=== PATIENT | female | born 1990 | race African-American/Black ===

== ENCOUNTER 2016-10-31 19:58 | Emergency (ER) | payer OTHER ==
--- NOTE | 2016-10-31 21:16 | ED ---
Female Urogenital HPI - General Chief complaint: Urogenital Stated complaint: Female Time Seen by Provider: 10/31/16 20:38 Source: patient, RN notes reviewed Mode of arrival: ambulatory Limitations: no limitations - History of Present Illness Initial comments: 26-year-old female presents to the emergency department with a chief complaint of pelvic pain and bleeding. Patient states that she has an IUD in place. Patient states that she's had some pelvic pain and bleeding for the past few days. Patient states that most likely was her period but she states that she felt like she maybe feels something hard so she was concerned. Patient states she called her [employer] and they referred her here to have her IUD evaluated. Patient denies any other symptoms with this. Patient states she is having some pelvic cramping. Patient denies any recent fever, chills, shortness of breath, chest pain, back pain, nausea vomiting, numbness or tingling, dysuria or hematuria, constipation or diarrhea, headaches or visual changes, or any other current symptoms. - Related Data Home Medications Medication Instructions Recorded Confirmed No Known Home Medications [No 04/16/16 10/31/16 Known Home Medications] Allergies Allergy/AdvReac Type Severity Reaction Status Date / Time No Known Allergies Allergy Verified 10/31/16 21:17 Review of Systems ROS Statement: Those systems with pertinent positive or pertinent negative responses have been documented in the HPI. ROS Other: All systems not noted in ROS Statement are negative. Past Medical History Past Medical History: No Reported History History of Any Multi-Drug Resistant Organisms: None Reported Past Surgical History: Section Past Anesthesia/Blood Transfusion Reactions: No Reported Reaction Past Psychological History: No Psychological Hx Reported Smoking Status: Never smoker Past Alcohol Use History: None Reported Past Drug Use History: None Reported - Past Family History Mother Family Medical History: No Reported History General Exam Limitations: no limitations General appearance: alert, in no apparent distress Head exam: Present: atraumatic, normocephalic, normal inspection Neck exam: Present: normal inspection. Absent: tenderness, meningismus, lymphadenopathy Respiratory exam: Present: normal lung sounds bilaterally. Absent: respiratory distress, wheezes, rales, rhonchi, stridor Cardiovascular Exam: Present: regular rate, normal rhythm, normal heart sounds. Absent: systolic murmur, diastolic murmur, rubs, gallop, clicks GI/Abdominal exam: Present: soft, normal bowel sounds. Absent: distended, tenderness, guarding, rebound, rigid Speculum exam: Present: normal speculum exam, vaginal bleeding (Normal), other ( Translocated through cervix) By manual exam: Present: normal by manual exam. Absent: cervical motion tenderness, adnexal tenderness Extremities exam: Present: normal inspection, full ROM, normal capillary refill. Absent: tenderness, pedal edema, joint swelling, calf tenderness Neurological exam: Present: alert, oriented X3 Psychiatric exam: Present: normal affect, normal mood Skin exam: Present: warm, dry, intact, normal color. Absent: rash Course Vital Signs 10/31/16 20:07 Temperature 97.6 F Pulse Rate 74 Respiratory 20 Rate Blood Pressure 115/74 O2 Sat by Pulse 99 Oximetry Medical Decision Making - Medical Decision Making 26-year-old female presents to the emergency department with chief complaint of concern about her IUD. At this time patient's IUD does appear to be appropriate. This time we discussed patient most likely is suffering from menstruation. We discussed taking Motrin Tylenol for pain control. We discussed return parameters and follow-up. Discussed and she will be discharged. Disposition Clinical Impression: Abnormal menstruation Disposition: HOME SELF-CARE Condition: Stable Instructions: Dysmenorrhea (ED) Additional Instructions: Please use medication as discussed. Please follow up with family doctor if symptoms have not improved over the next two days. Please return to the emergency room if your symptoms increase or worsen or for any other concerns. Referrals: None,Stated [Primary Care Provider] - 1-2 days Stephon Quinn MD [STAFF PHYSICIAN] - 1-2 days Time of Disposition: 22:12
--- NOTE | 2016-10-31 22:04 | US ---
EXAMINATION TYPE: US transvaginal DATE OF EXAM: 10/31/2016 9:53 PM COMPARISON: 02/20/2015. CLINICAL HISTORY: Pain. Patient states feeling IUD. Check position. No pain. Bleeding. Irreg mense s TECHNIQUE: Transvaginal (TV) Date of LMP: 05/2016, EXAM MEASUREMENTS: Uterus: 8.9 x 4.9 4.4 cm Endometrial Stripe: 0.6 cm Right Ovary: 2.6 x 2.1 x 2.2 cm Left Ovary: 2.5 x 2.2 x 1.7 cm 1. Uterus: Anteverted wnl 2. Endometrium: wnl, IUD seen 3. Right Ovary: follicles 4. Left Ovary: follicles Spectral, color and waveform doppler imaging shows good arterial and venous flow within the ovaries ; there is no evidence for ovarian torsion. 5. Bilateral Adnexa: wnl 6. Posterior cul-de-sac: no free fluid Intrauterine device is seen centrally within the endometrium spanning the lower and upper uterine seg ments. Few nabothian cysts are seen within the cervix. IMPRESSION: Appropriately placed intrauterine device spanning the lower and upper cervical segment. O therwise unremarkable pelvic ultrasound.
[2016-10-31 22:31] VITALS: BP 112/68; PULSE 70; RESP 18; TEMP 97.5
== END 2016-10-31 22:30 | disposition home or self-care (01) ==
LOC: EC 19:58
DX: N92.6 Irregular menstruation, unspecified (principal); R10.2 Pelvic and perineal pain
CPT/HCPCS: 76830; 93975; 99283

== ENCOUNTER 2016-11-23 01:26 | Emergency (ER) | payer OTHER ==
[2016-11-23 02:46] VITALS: RESP 20
[2016-11-23] MEDS ORDERED: IPRATROPIUM-ALBUTEROL 3 ML NEB INHALATION STA (03:25)
--- NOTE | 2016-11-23 03:27 | ED ---
URI HPI - General Chief Complaint: Upper Respiratory Infection Stated Complaint: URI Time Seen by Provider: 11/23/16 02:51 Source: patient, RN notes reviewed Mode of arrival: ambulatory Limitations: no limitations - History of Present Illness Initial Comments: Patient is a 26-year-old female presents to the emergency room for reevaluation upper respiratory symptoms. Patient states she's had cough and congestion and throat pain for the past 2 days. Patient denies taking any [id number] medications. Patient states she is coughing up green mucus. Patient denies fevers or chills. Patient denies abdominal pain. Patient denies nausea or vomiting. Patient denies ear pain. Patient states she is having constant throat pain that is worse whenever she coughs. Patient denies smoking. Patient denies history of asthma. Patient states she is up-to-date on her immunizations. - Related Data Previous Rx's Medication Instructions Recorded Albuterol Inhaler [Ventolin Hfa 1 - 2 puff INHALATION Q6HR PRN #1 11/23/16 Inhaler] inhaler Azithromycin [Zithromax Z-pack] 250 mg PO DIRECTED #6 tab 11/23/16 Allergies Allergy/AdvReac Type Severity Reaction Status Date / Time No Known Allergies Allergy Verified 11/23/16 01:36 Review of Systems ROS Statement: Those systems with pertinent positive or pertinent negative responses have been documented in the HPI. ROS Other: All systems not noted in ROS Statement are negative. Past Medical History Past Medical History: No Reported History History of Any Multi-Drug Resistant Organisms: None Reported Past Surgical History: Section Past Anesthesia/Blood Transfusion Reactions: No Reported Reaction Past Psychological History: No Psychological Hx Reported Smoking Status: Never smoker Past Alcohol Use History: None Reported Past Drug Use History: None Reported - Past Family History Mother Family Medical History: No Reported History General Exam - General Exam Comments Initial Comments: Sitting in exam room, no acute distress. Limitations: no limitations General appearance: alert, in no apparent distress Head exam: Present: atraumatic, normocephalic, normal inspection Eye exam: Present: normal appearance ENT exam: Present: normal exam, normal oropharynx, mucous membranes moist, TM's normal bilaterally, normal external ear exam Neck exam: Present: normal inspection Respiratory exam: Present: normal lung sounds bilaterally. Absent: respiratory distress Cardiovascular Exam: Present: regular rate, normal rhythm, normal heart sounds Extremities exam: Present: normal inspection Back exam: Present: normal inspection Neurological exam: Present: alert, oriented X3, CN II-XII intact, normal gait Psychiatric exam: Present: normal affect, normal mood Skin exam: Present: warm, dry, intact, normal color. Absent: rash Course Vital Signs 11/23/16 11/23/16 11/23/16 01:33 02:45 03:39 Temperature 97.5 F L Pulse Rate 98 92 Respiratory 18 20 Rate Blood Pressure 140/76 O2 Sat by Pulse 98 Oximetry 11/23/16 03:48 Temperature Pulse Rate 92 Respiratory Rate Blood Pressure O2 Sat by Pulse Oximetry Medical Decision Making - Medical Decision Making patient is a 26-year-old female presents to the emergency room for evaluation of cough and congestion. patient will be treated for bronchitis. Advised patient to follow-up with primary care provider Thursday. Patient states she understands everything that was discussed with her. Return parameters discussed. Case discussed with Dr. Umanzor. - Lab Data Lab Results 11/23/16 11/23/16 Range/Units 03:10 03:10 Influenza Type A RNA Not Detected (Not Detectd) Influenza Type B (PCR) Not Detected (Not Detectd) Group A Strep Rapid Negative (Negative) - Radiology Data Radiology results: report reviewed, image reviewed Disposition Clinical Impression: Bronchitis Disposition: HOME SELF-CARE Condition: Good Instructions: Acute Bronchitis (ED) Additional Instructions: Take antibiotics as directed. Use inhaler as needed. Please follow up with primary care provider on Thursday for reevaluation. If any new symptom arises or symptoms worsen, return to ER as soon as possible. Prescriptions: Albuterol Inhaler [Ventolin Hfa Inhaler] 1 - 2 puff INHALATION Q6HR PRN #1 inhaler PRN Reason: Cough Azithromycin [Zithromax Z-pack] 250 mg PO DIRECTED #6 tab Referrals: None,Stated [Primary Care Provider] - 1-2 days Time of Disposition: 04:22
--- NOTE | 2016-11-23 04:22 | XR ---
EXAM: XR Chest, 2 Views CLINICAL HISTORY: Reason: Pain TECHNIQUE: Frontal and lateral views of the chest. COMPARISON: 04/16/16 FINDINGS: Lungs: Unremarkable. No consolidation. Pleural space: Unremarkable. No pneumothorax. Heart: Unremarkable. No cardiomegaly. Mediastinum: Unremarkable. Bones/joints: Unremarkable. IMPRESSION: No significant change. No new acute intrathoracic abnormality is seen.
[2016-11-23 04:55] VITALS: BP 132/78; PULSE 81; TEMP 97.6
== END 2016-11-23 04:54 | disposition home or self-care (01) ==
LOC: EC 01:26
DX: J40 Bronchitis, not specified as acute or chronic (principal)
CPT/HCPCS: 71020; 87081; 87430; 87502; 94640; 99284

== ENCOUNTER 2017-01-24 16:43 | Emergency (ER) | payer OTHER ==
[2017-01-24 16:49] VITALS: BP 128/75; PULSE 71; RESP 16; TEMP 98.5
--- NOTE | 2017-01-24 17:25 | ED ---
General Adult HPI - General Chief complaint: Vaginal Bleeding Stated complaint: Urogenital Time Seen by Provider: 01/24/17 17:03 Source: patient, RN notes reviewed Mode of arrival: ambulatory Limitations: no limitations - History of Present Illness Initial comments: 26-year-old female presents to the emergency department with a chief complaint of pelvic cramping and vaginal bleeding. Patient states she has an IUD in place. Patient states that she's been having pelvic cramping and some bleeding for the past 2 days. Patient states she's having some vaginal discomfort. Patient is concerned about her IUD. Patient does not believe that she is . Patient states she's had no nausea vomiting fever or chills. Patient states she has regular menstrual cycle so she does not know if this is her menstrual cycle or something different. Patient denies any abdominal pain with this states she is cervical and vaginal pain. Patient states that she hasn 't had any fever or chills with this. Patient states that her BAND SHOVER is Dr. Palma. Patient states she was concerned due to her symptoms so she thought that she. Patient denies any recent fever, chills, shortness of breath, chest pain, back pain, abdominal pain, nausea vomiting, numbness or tingling, dysuria or hematuria, constipation or diarrhea, headaches or visual changes, or any other current symptoms. - Related Data Home Medications Medication Instructions Recorded Confirmed No Known Home Medications [No 01/24/17 01/24/17 Known Home Medications] Allergies Allergy/AdvReac Type Severity Reaction Status Date / Time No Known Allergies Allergy Verified 01/24/17 16:57 Review of Systems ROS Statement: Those systems with pertinent positive or pertinent negative responses have been documented in the HPI. ROS Other: All systems not noted in ROS Statement are negative. Past Medical History Past Medical History: No Reported History History of Any Multi-Drug Resistant Organisms: None Reported Past Surgical History: Section Additional Past Surgical History / Comment(s): IUD placement Past Anesthesia/Blood Transfusion Reactions: No Reported Reaction Past Psychological History: No Psychological Hx Reported Smoking Status: Never smoker Past Alcohol Use History: None Reported Past Drug Use History: None Reported - Past Family History Mother Family Medical History: No Reported History General Exam Limitations: no limitations General appearance: alert, in no apparent distress Eye exam: Present: normal appearance, PERRL, EOMI. Absent: scleral icterus, conjunctival injection, periorbital swelling Neck exam: Present: normal inspection. Absent: tenderness, meningismus, lymphadenopathy Respiratory exam: Present: normal lung sounds bilaterally. Absent: respiratory distress, wheezes, rales, rhonchi, stridor Cardiovascular Exam: Present: regular rate, normal rhythm, normal heart sounds. Absent: systolic murmur, diastolic murmur, rubs, gallop, clicks External exam: Present: normal external exam Speculum exam: Present: normal speculum exam, other (Strengths do appear to be intact) By manual exam: Present: normal by manual exam Neurological exam: Present: alert, oriented X3 Psychiatric exam: Present: normal affect, normal mood Skin exam: Present: warm, dry, intact, normal color. Absent: rash Course Vital Signs 01/24/17 16:45 Temperature 98.5 F Pulse Rate 71 Respiratory 16 Rate Blood Pressure 128/75 O2 Sat by Pulse 100 Oximetry Medical Decision Making - Medical Decision Making 26-year-old female presents for vaginal pain and bleeding. At this time ultrasound is reviewed and negative. is negative urine appears to be negative. At this time we discussed her cramping is most likely due to her maps was discussed. Patient states that she understood. She is negative plan. She will be discharged. - Lab Data Lab Results 01/24/17 01/24/17 Range/Units 17:45 17:45 Urine Color Light Yellow Urine Appearance Clear (Clear) Urine pH 5.5 (5.0-8.0) Ur Specific May 1.012 (1.001-1.035) Urine Protein Negative (Negative) Urine Glucose (UA) Negative (Negative) Urine Ketones Negative (Negative) Urine Blood Moderate H (Negative) Urine Nitrite Negative (Negative) Urine Bilirubin Negative (Negative) Urine Urobilinogen <2.0 (<2.0) mg/dL Ur Leukocyte Esterase Trace H (Negative) Urine RBC <1 (0-5) /hpf Urine WBC 2 (0-5) /hpf Ur Squamous Epith Cells 3 (0-4) /hpf Urine HCG, Qual Not Detected (Not Detectd) - Radiology Data Radiology results: report reviewed, image reviewed Disposition Clinical Impression: Dysfunctional uterine bleeding Disposition: TRANSFER TO PSYCH HOSP/UNIT Condition: Stable Instructions: Dysfunctional Uterine Bleeding (ED) Additional Instructions: Please follow up with family doctor if symptoms have not improved over the next two days. Please return to the emergency room if your symptoms increase or worsen or for any other concerns. Referrals: Nichol Lowe DO [Doctor of Osteopathic Medicine] - 1-2 days Time of Disposition: 18:55
[2017-01-24 18:00] LABS: Appearance,Urine Clear (Clear); Bilirubin,Urine Negative (Negative); Glucose,Urine (UA) Negative (Negative); Ketones,Urine Negative (Negative); Leukocyte Esterase,Urine Trace (Negative); Nitrite,Urine Negative (Negative); PH, Urine 5.5 (5.0-8.0); Particle Count 2144; Protein,Urine Negative (Negative); RBC,Urine <1 /hpf (0-5); Specific Gravity,Urine 1.012 (1.001-1.035); Squamous Epithelial Cell,Urine 3 /hpf (0-4); UA Billing (MACRO vs. MICRO) MICRO; Urobilinogen,Urine <2.0 mg/dL (<2.0); WBC,Urine 2 /hpf (0-5)
--- NOTE | 2017-01-24 18:43 | US ---
EXAMINATION TYPE: US pelvis comp w/tv w/doppler DATE OF EXAM: 01/24/2017 COMPARISON: NONE CLINICAL HISTORY: Pain. TECHNIQUE: Transabdominal & Transvaginal Date of LMP: unknown irreg periods EXAM MEASUREMENTS: Uterus: 9.4 x 4.7 x 6.1 cm Endometrial Stripe: 0.4 cm Right Ovary: 2.9 x 2.5 x 2.3 cm Left Ovary: 3.5 x 2.3 x 2.6 cm 1. Uterus: anteverted; appears wnl 2. Endometrium: wnl, IUD appears wnl endo in the fundal area of the uterus 3. Right Ovary: wnl 4. Left Ovary: wnl Spectral, color and waveform doppler imaging shows good arterial and venous flow within the ovaries ; there is no evidence for ovarian torsion. 5. Bilateral Adnexa: wnl 6. Posterior cul-de-sac: wnl IMPRESSION: IUD appears in good position. No evidence of ovarian torsion. No adnexal mass or free flu id.
== END 2017-01-24 19:30 | disposition home or self-care (01) ==
LOC: EC 16:43
DX: N93.8 Other specified abnormal uterine and vaginal bleeding (principal); Z98.890 Other specified postprocedural states
CPT/HCPCS: 76830; 76856; 81001; 81025; 93975; 93976; 99284

== ENCOUNTER 2017-06-23 02:08 | Emergency (ER) | payer OTHER ==
[2017-06-23] MEDS ORDERED: SODIUM CHLORIDE 0.9% 1,000 ML IV STA (02:24)
--- NOTE | 2017-06-23 02:28 | ED ---
Abdominal Pain HPI - General Chief Complaint: Abdominal Pain Stated Complaint: abd pain Time Seen by Provider: 06/23/17 02:10 Source: patient, EMS, RN notes reviewed Mode of arrival: EMS Limitations: no limitations - History of Present Illness Initial Comments: This is a 27-year-old female who presents to the emergency department with chief complaint of intermittent abdominal pain. Patient arrived via EMS. Patient states that for the past 2 days she has been experiencing lower abdominal pain which alerts her that she has to have a bowel movement. Patient states that while trying to pass stool her abdominal pain increases. She states that she has been straining to have a bowel movement. Denies any blood in the stool. She states that she has also been feeling nauseous. She states that her appetite has been normal and that she's been able to keep down fluids. Denies fever, chills, chest pain, shortness of breath, constipation or diarrhea , dysuria or hematuria, numbness or tingling, headache or vision changes. - Related Data Previous Rx's Medication Instructions Recorded Cyclobenzaprine [Flexeril] 10 mg PO TID #15 tab 06/20/17 Ibuprofen 800 mg PO TID #20 tablet 06/20/17 Docusate Sodium [Dok] 100 mg PO BID PRN #20 capsule 06/23/17 Allergies Allergy/AdvReac Type Severity Reaction Status Date / Time No Known Allergies Allergy Verified 06/20/17 20:50 Review of Systems ROS Statement: Those systems with pertinent positive or pertinent negative responses have been documented in the HPI. ROS Other: All systems not noted in ROS Statement are negative. Past Medical History Past Medical History: No Reported History History of Any Multi-Drug Resistant Organisms: None Reported Past Surgical History: Section Additional Past Surgical History / Comment(s): IUD placement Past Anesthesia/Blood Transfusion Reactions: No Reported Reaction Past Psychological History: Depression, PTSD Smoking Status: Never smoker Past Alcohol Use History: None Reported Past Drug Use History: None Reported - Past Family History Mother Family Medical History: No Reported History General Exam - General Exam Comments Initial Comments: General: Awake and alert, well-developed; in no apparent distress. HEENT: Head atraumatic, normocephalic. Pupils are equal, round and reactive to light. Extraocular movements intact. Oropharynx moist without erythema or exudate. Neck: Supple. Normal ROM. Cardiovascular: Regular rate and rhythm. No murmurs, rubs or gallops. Chest symmetrical. Respiratory: Lungs clear to auscultation bilaterally. No wheezes, rales or rhonchi. Normal respiratory effort with no use of accessory muscles. Abdomen: Soft, non-tender, non-distended. No rigidity, rebound or guarding. Normal bowel sounds in all 4 quadrants. Skin: [place], warm and dry without rashes or lesions. Neurological: Alert and oriented x3. CN II-XII grossly intact. Speech is fluent and answers are appropriate. No focal neuro deficits. Psychiatric: Normal mood and affect. No overt signs of depression or anxiety noted. Limitations: no limitations Course Vital Signs 06/23/17 02:16 Temperature 97.6 F Pulse Rate 59 L Respiratory 18 Rate Blood Pressure 132/56 O2 Sat by Pulse 100 Oximetry Medical Decision Making - Medical Decision Making This is a 27-year-old female who presented via EMS for evaluation of abdominal pain for the past 2 days. Patient states that the abdominal pain occurs in her lower abdomen and is intermittent, increasing when she has a bowel movement. Denies any blood in the stool. CBC, CMP, amylase and lipase are within normal limits. Patient does not have a white count. UA is normal. KUB revealed no acute abnormalities. Patient reports she has been straining to have a bowel movement. Patient will be discharged home with a prescription for stool softeners. Findings and plan were discussed with patient. Return parameters were addressed. Patient is in agreement with plan and voices understanding. All questions were answered. - Radiology Data Radiology results: report reviewed KUB x-ray impression: No acute disease or bowel obstruction. Disposition Clinical Impression: Abdominal pain Disposition: HOME SELF-CARE Condition: Good Instructions: Abdominal Pain (ED) Additional Instructions: Please take medications as prescribed. Please follow up with primary care provider within 1-2 days. Return to emergency department if symptoms should worsen or any concerns arise. Prescriptions: Docusate Sodium [Dok] 100 mg PO BID PRN #20 capsule PRN Reason: Constipation Referrals: None,Stated [Primary Care Provider] - 1-2 days Time of Disposition: 03:29
[2017-06-23 02:50] LABS: Basophils # (A) 0.1 k/uL (0-0.2); Basophils % (A) 1 %; CH 33.2; CHCM 35.5; Eosinophils # (A) 0.1 k/uL (0-0.7); Eosinophils % (A) 1 %; HCT 39.1 % (34.0-46.0); HDW 2.56; HGB 13.2 gm/dL (11.4-16.0); Luc # (Auto) 0.15; Luc % (Auto) 2; Lymphocytes % (A) 34 %; MCH 31.7 pg (25.0-35.0); MCHC 33.8 g/dL (31.0-37.0); MCV 93.7 fL (80.0-100.0); Mean Platelet Volume 7.1; Monocytes # (A) 0.5 k/uL (0-1.0); Monocytes % (A) 6 %; Neutrophils % (A) 56 %; RBC 4.17 m/uL (3.80-5.40); WBC 8.8 k/uL (3.8-10.6); WBC (Perox) 8.69
[2017-06-23 03:04] LABS: ALT 36 U/L (9-52); AST 22 U/L (14-36); Alkaline Phosphatase 59 U/L (38-126); Amylase 80 U/L (30-110); Anion Gap 12 mmol/L; Blood Urea Nitrogen 14 mg/dL (7-17); Calcium 9.1 mg/dL (8.4-10.2); Carbon Dioxide 25 mmol/L (22-30); Chloride 106 mmol/L (98-107); Glucose 96 mg/dL (74-99); Non-African American GFR(MDRD) >60 (>60 ml/min/1.73 sqM); Potassium 3.8 mmol/L (3.5-5.1); Sodium 143 mmol/L (137-145); Total Bilirubin <0.1 mg/dL (0.2-1.3); Total Protein 6.5 g/dL (6.3-8.2)
[2017-06-23 03:16] LABS: Appearance,Urine Clear (Clear); Bilirubin,Urine Negative (Negative); Glucose,Urine (UA) Negative (Negative); Ketones,Urine Negative (Negative); Leukocyte Esterase,Urine Negative (Negative); Nitrite,Urine Negative (Negative); Protein,Urine Negative (Negative); Specific Gravity,Urine 1.013 (1.001-1.035); UA Billing (MACRO vs. MICRO) CHEM; Urobilinogen,Urine <2.0 mg/dL (<2.0)
--- NOTE | 2017-06-23 03:17 | XR ---
EXAM: XR Abdomen, 1 View CLINICAL HISTORY: Reason: abdominal pain TECHNIQUE: Frontal supine view of the abdomen/pelvis. COMPARISON: No relevant prior studies available. FINDINGS: Gastrointestinal tract: Unremarkable with no gross evidence for free intraperitoneal air. No dilation. Bones/joints: Unremarkable. OTHER: IUD in place. IMPRESSION: No acute disease or bowel obstruction.
[2017-06-23 03:42] VITALS: BP 101/66; PULSE 61; RESP 16; TEMP 97.4
== END 2017-06-23 03:41 | disposition home or self-care (01) ==
LOC: EC 02:08
DX: R10.30 Lower abdominal pain, unspecified (principal); R11.0 Nausea
CPT/HCPCS: 36415; 74000; 80053; 81003; 82150; 83690; 85025; 96360; 99284

== ENCOUNTER 2017-12-01 23:16 | Emergency (ER) | payer OTHER ==
[2017-12-01] MEDS ORDERED: IBUPROFEN 600 MG STARTER PACK 4 TAB BTL PO STA (23:52)
--- NOTE | 2017-12-02 00:11 | XR ---
EXAMINATION TYPE: XR lumbar spine 2 or 3V DATE OF EXAM: 12/02/2017 COMPARISON: NONE HISTORY: Back pain TECHNIQUE: 3 views FINDINGS: Lumbar vertebra have normal spacing and alignment. Posterior elements are intact. Sacroilia c joints appear normal. IMPRESSION: Normal lumbar spine exam.
--- NOTE | 2017-12-02 00:12 | XR ---
EXAMINATION TYPE: XR knee limited bilateral DATE OF EXAM: 12/02/2017 COMPARISON: NONE HISTORY: Bilateral knee pain TECHNIQUE: 2 views each knee FINDINGS: I see no fracture nor dislocation. Joint spaces are normal. There is no sign of any joint e ffusion. There are no pathologic calcifications. IMPRESSION: Negative bilateral knee exam.
--- NOTE | 2017-12-02 00:29 | ED ---
General Adult HPI - General Chief complaint: Back Pain/Injury Stated complaint: knee/back pain Time Seen by Provider: 12/01/17 23:34 Source: patient, RN notes reviewed, old records reviewed Mode of arrival: ambulatory Limitations: no limitations - History of Present Illness Initial comments: 27-year-old female presents to emergency department and she complain of bilateral knee pain and back pain. She states that it seems to be worse than ever she is resting her legs start to ache. Denies is a new trauma. She also states she has a lower back pain. That is also chronic. It will radiate down her left leg. She denies any saddle anesthesia. - Related Data Previous Rx's Medication Instructions Recorded Cyclobenzaprine [Flexeril] 10 mg PO TID #15 tab 06/20/17 Ibuprofen 800 mg PO TID #20 tablet 06/20/17 Docusate Sodium [Dok] 100 mg PO BID PRN #20 capsule 06/23/17 Cyclobenzaprine [Flexeril] 10 mg PO TID #15 tab 12/02/17 Ibuprofen [Motrin] 600 mg PO Q8HR PRN #20 tab 12/02/17 Nitrofurantoin Monohyd/M-Cryst 100 mg PO Q12HR #15 cap 12/02/17 [Macrobid] Allergies Allergy/AdvReac Type Severity Reaction Status Date / Time No Known Allergies Allergy Verified 06/20/17 20:50 Review of Systems ROS Statement: Those systems with pertinent positive or pertinent negative responses have been documented in the HPI. ROS Other: All systems not noted in ROS Statement are negative. Past Medical History Past Medical History: No Reported History History of Any Multi-Drug Resistant Organisms: None Reported Past Surgical History: Section Additional Past Surgical History / Comment(s): IUD placement Past Anesthesia/Blood Transfusion Reactions: No Reported Reaction Past Psychological History: Depression, PTSD Smoking Status: Never smoker Past Alcohol Use History: None Reported Past Drug Use History: None Reported - Past Family History Mother Family Medical History: No Reported History General Exam - General Exam Comments Initial Comments: This is a 27 year old female, no acute distress. Limitations: no limitations General appearance: alert, in no apparent distress Head exam: Present: atraumatic, normocephalic, normal inspection Eye exam: Present: normal appearance, PERRL, EOMI. Absent: scleral icterus, conjunctival injection, periorbital swelling ENT exam: Present: normal exam, mucous membranes moist Neck exam: Present: normal inspection. Absent: tenderness, meningismus, lymphadenopathy Respiratory exam: Present: normal lung sounds bilaterally. Absent: respiratory distress, wheezes, rales, rhonchi, stridor Cardiovascular Exam: Present: regular rate, normal rhythm, normal heart sounds. Absent: systolic murmur, diastolic murmur, rubs, gallop, clicks GI/Abdominal exam: Present: soft, normal bowel sounds. Absent: distended, tenderness, guarding, rebound, rigid Extremities exam: Present: normal inspection, full ROM, normal capillary refill. Absent: tenderness, pedal edema, joint swelling, calf tenderness Back exam: Present: normal inspection, tenderness (lumbar spinal tenderness. ) Neurological exam: Present: alert, oriented X3, CN II-XII intact Psychiatric exam: Present: normal affect, normal mood Skin exam: Present: warm, dry, intact, normal color. Absent: rash Course Vital Signs 12/01/17 12/02/17 23:17 01:09 Temperature 98.2 F 100.0 F H Pulse Rate 80 76 Respiratory 18 16 Rate Blood Pressure 145/83 146/71 O2 Sat by Pulse 98 98 Oximetry Medical Decision Making - Medical Decision Making This is a 27 year old female with bilateral knee pain and lower back pain with no injury. She has no rashes. She has full ROM of knees and back. No saddle anesthesia. Xrays of knee and back are normal. On discharge patient noted to have a mild fever. UA completed and evidence of UTI. Will treat patient with macrobid. Culture pending. Discussed appropriate follow up and will place patient on antiinflammatories medication and muscle relaxer for back and knee pain. REturn parameters discussed. - Lab Data Lab Results 12/02/17 12/02/17 Range/Units 00:42 00:42 Urine Color Yellow Urine Appearance Cloudy H (Clear) Urine pH 5.5 (5.0-8.0) Ur Specific [place] 1.015 (1.001-1.035) Urine Protein Negative (Negative) Urine Glucose (UA) Negative (Negative) Urine Ketones Negative (Negative) Urine Blood Trace H (Negative) Urine Nitrite Negative (Negative) Urine Bilirubin Negative (Negative) Urine Urobilinogen <2.0 (<2.0) mg/dL Ur Leukocyte Esterase Moderate H (Negative) Urine WBC 15 H (0-5) /hpf Ur Squamous Epith Cells 4 (0-4) /hpf Urine Bacteria Many H (None) /hpf Urine HCG, Qual Not Detected (Not Detectd) - Radiology Data Radiology results: report reviewed Normal bilateral knee exam. Normal lumbar spine exam. Disposition Clinical Impression: Bilateral knee pain, Strain of lumbar region, UTI (urinary tract infection) Disposition: HOME SELF-CARE Condition: Good Instructions: Acute Low Back Pain (ED), Knee Pain (ED) Additional Instructions: Patient advised to follow-up with primary care provider. Return to the emergency department if any alarming signs or symptoms occur. Use anti- inflammatory medicine heat and ice for pain. Prescriptions: Cyclobenzaprine [Flexeril] 10 mg PO TID #15 tab Ibuprofen [Motrin] 600 mg PO Q8HR PRN #20 tab PRN Reason: Pain Nitrofurantoin Monohyd/M-Cryst [Macrobid] 100 mg PO Q12HR #15 cap Is patient prescribed a controlled substance at d/c from ED?: No When asked, does pt state using other controlled substances?: No If prescribed controlled substance>3 days was MAPS reviewed?: No If opioid is for acute pain is fill amount 7 days or less?: No If Rx opioid, was Start Talking consent form obtained?: No Referrals: None,Stated [Primary Care Provider] - 1-2 days Kelly Moralez MD [STAFF PHYSICIAN] - 1-2 days Time of Disposition: 00:27
[2017-12-02] MEDS ORDERED: ACETAMINOPHEN TAB 500 MG TAB PO STA (00:42)
[2017-12-02 00:58] LABS: Appearance,Urine Cloudy (Clear); Bacteria,Urine Many /hpf; Bilirubin,Urine Negative (Negative); Blood,Urine Trace (Negative); Color,Urine Yellow; Glucose,Urine (UA) Negative (Negative); Ketones,Urine Negative (Negative); Leukocyte Esterase,Urine Moderate (Negative); Nitrite,Urine Negative (Negative); PH, Urine 5.5 (5.0-8.0); Protein,Urine Negative (Negative); Specific Gravity,Urine 1.015 (1.001-1.035); Squamous Epithelial Cell,Urine 4 /hpf (0-4); Urobilinogen,Urine <2.0 mg/dL (<2.0); WBC,Urine 15 /hpf (0-5)
[2017-12-02 01:11] VITALS: BP 146/71; PULSE 76; RESP 16; TEMP 100
== END 2017-12-02 01:11 | disposition home or self-care (01) ==
LOC: EC 23:16
DX: S39.012A Strain of muscle, fascia and tendon of lower back, initial encounter (principal); N39.0 Urinary tract infection, site not specified; M25.562 Pain in left knee; M25.561 Pain in right knee; X58.XXXA Exposure to other specified factors, initial encounter
CPT/HCPCS: 72100; 81001; 81025; 87086; 99284

== ENCOUNTER 2018-11-07 21:06 | Emergency (ER) | payer OTHER ==
[2018-11-07 21:17] VITALS: RESP 18; TEMP 98.2
--- NOTE | 2018-11-07 22:54 | ED ---
General Adult HPI - General Source: patient, RN notes reviewed Mode of arrival: ambulatory Limitations: no limitations <Toro Kendrick P - Last Filed: 11/07/18 23:02> <Annamarie Norman P - Last Filed: 11/07/18 23:13> - General Chief complaint: Anxiety Stated complaint: Anxiety Attack Time Seen by Provider: 11/07/18 21:24 - History of Present Illness Initial comments: 28-year-old female without any significant past medical history of anxiety, depression, PTSD presents to the emergency department for a chief clean of anxiety. Patient states that today she went to the [employer] with her boyfriend. States she was walking home and he started to be on his phone NSAIDs secondary her. Patient states she became upset and started yelling at him in because result of an anxiety attack. Patient states she felt her heart was beating very quickly. States that this has since resolved however she wanted to be evaluated because she feels like her anxiety is getting worse. States she feels very angry. She denies wanting to hurt anyone. Denies homicidal thoughts. Patient denies any thoughts of harming herself or suicidal thoughts. States she would never do this. She has children that rely on her.Patient has no other complaints at this time including shortness of breath, chest pain, abdominal pain, nausea or vomiting, headache, or visual changes. (Toro Kendrick) - Related Data Home Medications Medication Instructions Recorded Confirmed No Known Home Medications 11/07/18 11/07/18 Allergies Allergy/AdvReac Type Severity Reaction Status Date / Time No Known Allergies Allergy Verified 11/07/18 22:09 Review of Systems ROS Other: All systems not noted in ROS Statement are negative. <Toro Kendrick P - Last Filed: 11/07/18 23:02> ROS Other: All systems not noted in ROS Statement are negative. <Annamarie Norman P - Last Filed: 11/07/18 23:13> ROS Statement: Those systems with pertinent positive or pertinent negative responses have been documented in the HPI. Past Medical History Past Medical History: No Reported History History of Any Multi-Drug Resistant Organisms: None Reported Past Surgical History: Section Additional Past Surgical History / Comment(s): IUD placement Past Anesthesia/Blood Transfusion Reactions: No Reported Reaction Past Psychological History: Anxiety, Depression, PTSD Smoking Status: Never smoker Past Alcohol Use History: None Reported Past Drug Use History: Marijuana - Past Family History Mother Family Medical History: No Reported History <Toro Kendrick - Last Filed: 11/07/18 23:02> General Exam Limitations: no limitations General appearance: alert, in no apparent distress Head exam: Present: atraumatic, normocephalic, normal inspection Eye exam: Present: normal appearance, PERRL, EOMI. Absent: scleral icterus, conjunctival injection, periorbital swelling ENT exam: Present: normal exam, mucous membranes moist Neck exam: Present: normal inspection, full ROM. Absent: tenderness, meningismus, lymphadenopathy Respiratory exam: Present: normal lung sounds bilaterally. Absent: respiratory distress, wheezes, rales, rhonchi, stridor Cardiovascular Exam: Present: regular rate, normal rhythm, normal heart sounds. Absent: systolic murmur, diastolic murmur, rubs, gallop, clicks Neurological exam: Present: alert, oriented X3, CN II-XII intact Psychiatric exam: Present: agitated, anxious. Absent: homicidal ideation, suicidal ideation <Toro Kendrick P - Last Filed: 11/07/18 23:02> Course Vital Signs 11/07/18 21:12 Temperature 98.2 F Pulse Rate 77 Respiratory 18 Rate Blood Pressure 146/83 O2 Sat by Pulse 99 Oximetry Medical Decision Making <Toro Kendrick P - Last Filed: 11/07/18 23:02> <Annamarie Norman P - Last Filed: 11/07/18 23:13> - Medical Decision Making 28-year-old female presents to the emergency department for a chief complaint of anxiety after getting in a verbal altercation with her boyfriend. Patient states she is getting more angry lately and is concerned about this. However she is denying thoughts of harming anyone or harming herself. Denies suicidal thoughts or homicidal thoughts. Patient was evaluated by EPS he did offer admission but do not feel it is absolutely necessary for patient to be admitted. Patient would prefer to follow up outpatient however does agree to return if her symptoms are worsening for admission at that time. I did reevaluate and patient was again denying any suicidal or homicidal thoughts. Comfortable with going home and outpatient referrals. (Toro Kendrick) I was available for consultation in the emergency department. The history and physical exam were done by the midlevel provider. I was consulted for this patient's care. I reviewed the case with the midlevel provider and based on their presentation of the patient, I agree with the assessment, medical decision making and plan of care as documented. Chart was dictated using [employer] dictation software. Attempts were made to correct any dictation errors however some typographical errors may persist. (Annamarie Norman) Disposition Is patient prescribed a controlled substance at d/c from ED?: No Time of Disposition: 22:51 <Toro Kendrick P - Last Filed: 11/07/18 23:02> <Annamarie Norman - Last Filed: 11/07/18 23:13> Clinical Impression: Situational anxiety, Situational disturbance, Acute anxiety Disposition: HOME SELF-CARE Instructions (If sedation given, give patient instructions): Generalized Anxiety Disorder (ED) Additional Instructions: Please follow up with primary care as well as resources given to you for mental health. If symptoms are worsening and return here immediately to the emergency department. Referrals: Kelly Moralez MD [STAFF PHYSICIAN] - 1-2 days
[2018-11-07 23:18] VITALS: BP 125/84; PULSE 60
== END 2018-11-07 23:05 | disposition home or self-care (01) ==
LOC: EC 21:06
DX: F41.9 Anxiety disorder, unspecified (principal); F43.0 Acute stress reaction
CPT/HCPCS: 99283

== ENCOUNTER 2018-11-08 19:49 | Emergency (ER) | payer OTHER ==
[2018-11-08 20:23] VITALS: RESP 18
--- NOTE | 2018-11-08 23:17 | ED ---
Psych HPI - General Chief Complaint: Recheck/Abnormal Lab/Rx Stated Complaint: Mental Health Time Seen by Provider: 11/08/18 21:19 Source: patient Mode of arrival: ambulatory - History of Present Illness Initial Comments: This patient is a 28-year-old woman who presents with the complaint that she feels like she is having worsening problems with anger. The patient states that this is been something that getting worse over the past couple of years since her daughter . She is concerned she may be developing PTSD. The patient states she has been having arguments with her boyfriend. She feels she is very quick to anger. She is currently not having treatment for this. She denies any suicidal or homicidal ideation. No hallucinations. MD Complaint: other (Anger management) -: week(s) Associated Psychiatric Symptoms: none History of same: Yes Quality: getting worse Improves With: none Worsens With: none Associated Symptoms: denies other symptoms - Related Data Home Medications Medication Instructions Recorded Confirmed No Known Home Medications 11/07/18 11/08/18 Allergies Allergy/AdvReac Type Severity Reaction Status Date / Time No Known Allergies Allergy Verified 11/08/18 21:39 Review of Systems ROS Statement: Those systems with pertinent positive or pertinent negative responses have been documented in the HPI. ROS Other: All systems not noted in ROS Statement are negative. Constitutional: Denies: fever, chills Respiratory: Denies: cough, dyspnea Cardiovascular: Denies: chest pain, palpitations Gastrointestinal: Denies: abdominal pain, vomiting, diarrhea Skin: Denies: rash Neurological: Denies: headache, weakness, numbness Psychiatric: Reports: homicidal thoughts. Denies: suicidal thoughts Past Medical History Past Medical History: No Reported History History of Any Multi-Drug Resistant Organisms: None Reported Past Surgical History: Section Additional Past Surgical History / Comment(s): IUD placement, Past Anesthesia/Blood Transfusion Reactions: No Reported Reaction Past Psychological History: Anxiety, Depression, PTSD Smoking Status: Never smoker Past Alcohol Use History: None Reported Past Drug Use History: Marijuana - Past Family History Mother Family Medical History: No Reported History General Exam Limitations: no limitations General appearance: alert, in no apparent distress Head exam: Present: atraumatic, normocephalic Neck exam: Present: normal inspection Respiratory exam: Present: normal lung sounds bilaterally. Absent: respiratory distress, wheezes, rales, rhonchi, stridor Cardiovascular Exam: Present: regular rate, normal rhythm, normal heart sounds GI/Abdominal exam: Present: soft. Absent: tenderness Neurological exam: Present: alert, normal gait Psychiatric exam: Present: normal affect, normal mood, homicidal ideation. Absent: agitated, suicidal ideation Skin exam: Present: warm, dry, intact, normal color. Absent: rash Course Vital Signs 11/08/18 11/08/18 20:16 23:54 Temperature 98.2 F 98.1 F Pulse Rate 64 57 L Respiratory 18 18 Rate Blood Pressure 121/67 132/94 O2 Sat by Pulse 100 100 Oximetry Medical Decision Making - Medical Decision Making Patient is evaluated by the behavioral health team. She does not currently have admission criteria, but will benefit with outpatient care. Patient given the [facility] follow-up information. Return parameters discussed Disposition Clinical Impression: Outbursts of anger Disposition: HOME SELF-CARE Condition: Good Instructions (If sedation given, give patient instructions): Mood Disorders (ED) Is patient prescribed a controlled substance at d/c from ED?: No Referrals: None,Stated [Primary Care Provider] - 1-2 days
[2018-11-08 23:55] VITALS: BP 132/94; PULSE 57; TEMP 98.1
== END 2018-11-08 23:54 | disposition home or self-care (01) ==
LOC: EC 19:49
DX: R45.4 Irritability and anger (principal)
CPT/HCPCS: 82075; 99284

== ENCOUNTER 2018-11-22 00:37 | Emergency (ER) | payer OTHER ==
[2018-11-22 00:42] VITALS: BP 122/80; PULSE 61; RESP 16; TEMP 98.3
--- NOTE | 2018-11-22 01:22 | ED ---
Female Urogenital HPI - General Source: patient Mode of arrival: ambulatory Limitations: no limitations - History of Present Illness Last Menstrual Period: 11/07/18 <Marbella Nugent - Last Filed: 11/22/18 04:20> <Annamarie Norman - Last Filed: 11/23/18 22:32> - General Chief complaint: Urogenital Stated complaint: Female Time Seen by Provider: 11/22/18 00:44 - History of Present Illness Initial comments: 28-year-old female patient presents to the emergency department today for evaluation of vaginal discomfort and possible displacement of her IUD. Patient states that she just after having sexual intercourse she was washing in the shower when she thought she saw her IUD fell out. Patient states she is having some mild discomfort to the vagina so she presented here for further evaluation. Patient states she did have some spotting with this as well. She denies any abnormal vaginal bleeding or discharge leading up to this. Denies any fever or chills. Denies any abdominal or back pain. Denies any hematuria, dysuria, urinary urgency, urinary frequency. Patient denies any recent rash, shortness breath, chest pain, nausea, vomiting, diarrhea, constipation, numbness, tingling, dizziness, weakness, headache, visual changes, or any other complaints. (Marbella Nugent) - Related Data Home Medications Medication Instructions Recorded Confirmed No Known Home Medications 11/07/18 11/08/18 Allergies Allergy/AdvReac Type Severity Reaction Status Date / Time No Known Allergies Allergy Verified 11/22/18 00:42 Review of Systems ROS Other: All systems not noted in ROS Statement are negative. <Marbella Nugent - Last Filed: 11/22/18 04:20> ROS Other: All systems not noted in ROS Statement are negative. <Annamarie Norman - Last Filed: 11/23/18 22:32> ROS Statement: Those systems with pertinent positive or pertinent negative responses have been documented in the HPI. Past Medical History Past Medical History: No Reported History History of Any Multi-Drug Resistant Organisms: None Reported Past Surgical History: Section Additional Past Surgical History / Comment(s): IUD placement, Past Anesthesia/Blood Transfusion Reactions: No Reported Reaction Past Psychological History: Anxiety, Depression, PTSD Smoking Status: Never smoker Past Alcohol Use History: None Reported Past Drug Use History: Marijuana - Past Family History Mother Family Medical History: No Reported History <Marbella Nugent M - Last Filed: 11/22/18 04:20> General Exam Limitations: no limitations General appearance: alert, in no apparent distress, other (Physical well- developed, well-nourished adult female patient in no acute distress. Vital signs upon presentation are temperature 98.3F, pulse 61, respirations 16, blood pressure 122/80, pulse ox 98% on room air.) Eye exam: Present: normal appearance, PERRL, EOMI. Absent: scleral icterus, conjunctival injection, periorbital swelling ENT exam: Present: normal exam, normal oropharynx, mucous membranes moist Respiratory exam: Present: normal lung sounds bilaterally. Absent: respiratory distress, wheezes, rales, rhonchi, stridor Cardiovascular Exam: Present: regular rate, normal rhythm, normal heart sounds. Absent: systolic murmur, diastolic murmur, rubs, gallop, clicks GI/Abdominal exam: Present: soft, normal bowel sounds. Absent: distended, tenderness, guarding, rebound, rigid External exam: Present: normal external exam Speculum exam: Present: normal speculum exam, vaginal bleeding (Very mild), other (IUD strings noted from the cervical os) By manual exam: Present: normal by manual exam. Absent: cervical motion tenderness, adnexal tenderness Neurological exam: Present: alert, oriented X3, CN II-XII intact Psychiatric exam: Present: normal affect, normal mood Skin exam: Present: warm, dry, intact, normal color. Absent: rash <Marbella Nugent M - Last Filed: 11/22/18 04:20> Course Vital Signs 11/22/18 00:39 Temperature 98.3 F Pulse Rate 61 Respiratory 16 Rate Blood Pressure 122/80 O2 Sat by Pulse 98 Oximetry Medical Decision Making <Marbella Nugent - Last Filed: 11/22/18 04:20> <Annamarie Norman - Last Filed: 11/23/18 22:32> - Medical Decision Making 28-year-old female patient presents to the emergency department today for evaluation of possible displacement of her IUD. Physical examination did reveal soft nontender abdomen. Pelvic exam did show IUD strings protruding from cervical os. There is some mild vaginal bleeding. Bimanual exam is unremarkable. I did discuss findings with the patient. States that she has felt a difference and the string lengthening is concerned for displacement. She'll be given a prescription for outpatient ultrasound to check placement of the IUD. She is instructed to follow-up with Dr. Mccray her flour tester for recheck as soon as possible. Return parameters discussed in detail. She verbalizes understanding and agrees with this plan. (Marbella Nugent) I was available for consultation in the emergency department. The history and physical exam were done by the midlevel provider. I was consulted for this patient's care. I reviewed the case with the midlevel provider and based on their presentation of the patient, I agree with the assessment, medical decision making and plan of care as documented. Chart was dictated using [employer] dictation software. Attempts were made to correct any dictation errors however some typographical errors may persist. (Annamarie Norman) Disposition Is patient prescribed a controlled substance at d/c from ED?: No Time of Disposition: 01:22 <Marbella Nugent - Last Filed: 11/22/18 04:20> <Annamarie Norman - Last Filed: 11/23/18 22:32> Clinical Impression: Vaginal discomfort Disposition: HOME SELF-CARE Condition: Good Instructions (If sedation given, give patient instructions): Pelvic Pain in Women (ED) Additional Instructions: Follow-up outpatient for ultrasound. Follow-up with your flour tester for recheck as soon as possible. Return to the emergency department immediately for any new, worsening, or concerning symptoms. Referrals: None,Stated [Primary Care Provider] - 1-2 days
== END 2018-11-22 01:32 | disposition home or self-care (01) ==
LOC: EC 00:37
DX: N89.9 Noninflammatory disorder of vagina, unspecified (principal); N93.9 Abnormal uterine and vaginal bleeding, unspecified; Z97.5 Presence of (intrauterine) contraceptive device
CPT/HCPCS: 99283

== ENCOUNTER 2019-05-29 16:44 | Emergency (ER) | payer OTHER ==
[2019-05-29 16:57] VITALS: RESP 18; TEMP 98.5
[2019-05-29] MEDS ORDERED: SODIUM CHLORIDE 0.9% 500 ML 500 ML IV STA (17:05)
[2019-05-29 17:35] LABS: Basophils % (A) 1 %; Eosinophils # (A) 0.2 k/uL (0-0.7); Eosinophils % (A) 3 %; HCT 36.5 % (34.0-46.0); HGB 12.6 gm/dL (11.4-16.0); Lymphocytes # (A) 2.4 k/uL (1.0-4.8); Lymphocytes % (A) 30 %; MCH 32.6 pg (25.0-35.0); MCHC 34.6 g/dL (31.0-37.0); MCV 94.4 fL (80.0-100.0); Mean Platelet Volume 6.1; Monocytes # (A) 0.5 k/uL (0-1.0); Monocytes % (A) 6 %; Neutrophils # (A) 4.9 k/uL (1.3-7.7); Neutrophils % (A) 60 %; Platelet Count 271 k/uL (150-450); RBC 3.86 m/uL (3.80-5.40); RDW 12.8 % (11.5-15.5); WBC 8.2 k/uL (3.8-10.6)
[2019-05-29 17:45] LABS: ALT 22 U/L (9-52); AST 22 U/L (14-36); African American GFR (CKD) >90 (>60 ml/min/1.73 sqM); Albumin 4.2 g/dL (3.5-5.0); Alkaline Phosphatase 57 U/L (38-126); Anion Gap 8 mmol/L; Blood Urea Nitrogen 10 mg/dL (7-17); Calcium 9.6 mg/dL (8.4-10.2); Carbon Dioxide 28 mmol/L (22-30); Chloride 106 mmol/L (98-107); Glucose 106 mg/dL (74-99); Non-African American GFR(CKD) >90 (>60 ml/min/1.73 sqM); Potassium 3.5 mmol/L (3.5-5.1); Sodium 142 mmol/L (137-145); Total Bilirubin 0.2 mg/dL (0.2-1.3); Total Protein 7.7 g/dL (6.3-8.2)
[2019-05-29 17:52] LABS: Appearance,Urine Cloudy (Clear); Bacteria,Urine Many /hpf; Bilirubin,Urine Negative (Negative); Blood,Urine Negative (Negative); Color,Urine Yellow; Glucose,Urine (UA) Negative (Negative); Ketones,Urine Negative (Negative); Leukocyte Esterase,Urine Small (Negative); Mucus,Urine Rare /hpf; Nitrite,Urine Positive (Negative); PH, Urine 5.5 (5.0-8.0); Protein,Urine Negative (Negative); RBC,Urine 2 /hpf (0-5); Specific Gravity,Urine 1.014 (1.001-1.035); Squamous Epithelial Cell,Urine 10 /hpf (0-4); Urobilinogen,Urine <2.0 mg/dL (<2.0); WBC,Urine 5 /hpf (0-5)
[2019-05-29 17:52] LABS: INR 0.9 (<1.2); Partial Thromboplastin Time 26.7 sec (22.0-30.0); Prothrombin Time 10.2 sec (9.0-12.0)
--- NOTE | 2019-05-29 18:09 | XR ---
EXAMINATION TYPE: XR chest 2V DATE OF EXAM: 05/29/2019 COMPARISON: Prior chest x-ray 11/23/2016 HISTORY: Chest pain TECHNIQUE: Frontal and lateral views of the chest are obtained. FINDINGS: There is no focal air space opacity, pleural effusion, or pneumothorax seen. The cardiac silhouette size is enlarged. The osseous structures are intact. IMPRESSION: Cardiomegaly.
[2019-05-29] MEDS ORDERED: CEPHALEXIN 500MG STARTER PACK 4 CAP BTL PO STA (18:26)
[2019-05-29] MEDS ORDERED: CEPHALEXIN 500 MG CAP PO STA (18:26)
--- NOTE | 2019-05-29 18:27 | ED ---
General Adult HPI - General Chief complaint: Chest Pain Stated complaint: heart hurts Time Seen by Provider: 05/29/19 16:58 Source: patient, RN notes reviewed, old records reviewed Mode of arrival: ambulatory Limitations: no limitations - History of Present Illness Initial comments: 29-year-old female patient presents to ED complaining of chest pain. Patient reports that the pain is substernal stabbing in nature. Has been ongoing for 3 days. Patient reports that she has an IUD. Therefore she cannot be . Denies any shortness of breath. Denies any pain in her legs. Denies any other complaints. Denies any associated symptoms including diaphoresis, nausea vomiting. Systemic: Pt denies fatigue, fever/chills, rash. Pt denies weakness, night sweats, weight loss. Neuro: Pt denies headache, visual disturbances, syncope or pre-syncope. HEENT: Pt denies ocular discharge or irritation, otalgia, rhinorrhea, pharyngitis or notable lymphadenopathy. Cardiopulmonary: Pt denies SOB, heart palpitations, dyspnea on exertion. Abdominal/GI: Pt denies abdominal pain, n/v/d. : Pt denies dysuria, burning w/ urination, frequency/urgency. Denies new onset urinary or bowel incontinence. MSK: Pt denies myalgia, loss of strength or function in extremities. Neuro: Pt denies new onset weakness, paresthesias. - Related Data Previous Rx's Medication Instructions Recorded Cephalexin [Keflex] 500 mg PO Q12HR 7 Days #14 cap 05/29/19 Allergies Allergy/AdvReac Type Severity Reaction Status Date / Time No Known Allergies Allergy Verified 05/29/19 16:57 Review of Systems ROS Statement: Those systems with pertinent positive or pertinent negative responses have been documented in the HPI. ROS Other: All systems not noted in ROS Statement are negative. Past Medical History Past Medical History: No Reported History History of Any Multi-Drug Resistant Organisms: None Reported Past Surgical History: Section Additional Past Surgical History / Comment(s): IUD placement, Past Anesthesia/Blood Transfusion Reactions: No Reported Reaction Past Psychological History: Anxiety, Depression, PTSD Smoking Status: Never smoker Past Alcohol Use History: None Reported Past Drug Use History: Marijuana - Past Family History Mother Family Medical History: No Reported History General Exam - General Exam Comments Initial Comments: Constitutional: NAD, AOX3, Pt has pleasant affect. HEENT: NC/AT, trachea midline, neck supple, no lymphadenopathy. Posterior pharynx non erythematous, without exudates. External ears appear normal, without discharge. Mucous membranes moist. Eyes PERRLA, EOM intact. There is no scleral icterus. No pallor noted. Cardiopulmonary: RRR, no murmurs, rubs or gallops, no JVD noted. Lungs CTAB in anterior and posterior figueroa. No peripheral edema. Abdominal exam: Abdomen soft and non-distended. Abdomen non-tender to palpation in all 4 quadrants. Bowel sounds active in LLQ. No hepatosplenomegaly. No ecchymosis Neuro: CN II-XII grossly intact. No nuchal rigidity. No raccon eyes, no bustillo sign, no hemotympanum. No cervical spinal tenderness. MSK: No posterior calf tenderness bilaterally, homans sign negative bilaterally. Posterior tibialis and radial pulse +2 bilaterally. Sensation intact in upper and lower extremities. Full active ROM in upper and lower extremities, 5/5 stregnth. Limitations: no limitations Course Vital Signs 05/29/19 05/29/19 16:54 17:43 Temperature 98.5 F Pulse Rate 58 L 54 L Respiratory 18 18 Rate Blood Pressure 110/60 106/72 O2 Sat by Pulse 100 100 Oximetry Medical Decision Making - Medical Decision Making 29-year-old female patient presents to the chief complaint of chest pain. Has been ongoing for 3 days. Physical exam didn't display acute pathology. EKG nonischemic. Laboratory investigations are non-impressive. Troponin negative. UA displayed mild urinary tract infection. We'll treat with Keflex. As x-ray display cardiomegaly. Patient was discharged with outpatient primary care follow-up. Pain appears to be noncardiac in nature. Case discussed with Dr. Castillo. - Lab Data Result diagrams: 05/29/19 17:23 05/29/19 17:23 Lab Results 05/29/19 05/29/19 05/29/19 Range/Units 17:23 17:23 17:23 WBC 8.2 (3.8-10.6) k/uL RBC 3.86 (3.80-5.40) m/uL Hgb 12.6 (11.4-16.0) gm/dL Hct 36.5 (34.0-46.0) % MCV 94.4 (80.0-100.0) fL MCH 32.6 (25.0-35.0) pg MCHC 34.6 (31.0-37.0) g/dL RDW 12.8 (11.5-15.5) % Plt Count 271 (150-450) k/uL Neutrophils % 60 % Lymphocytes % 30 % Monocytes % 6 % Eosinophils % 3 % Basophils % 1 % Neutrophils # 4.9 (1.3-7.7) k/uL Lymphocytes # 2.4 (1.0-4.8) k/uL Monocytes # 0.5 (0-1.0) k/uL Eosinophils # 0.2 (0-0.7) k/uL Basophils # 0.0 (0-0.2) k/uL PT 10.2 (9.0-12.0) sec INR 0.9 (<1.2) APTT 26.7 (22.0-30.0) sec Sodium 142 (137-145) mmol/L Potassium 3.5 (3.5-5.1) mmol/L Chloride 106 (98-107) mmol/L Carbon Dioxide 28 (22-30) mmol/L Anion Gap 8 mmol/L BUN 10 (7-17) mg/dL Creatinine 0.76 (0.52-1.04) mg/dL Est GFR (CKD-EPI)AfAm >90 (>60 ml/min/1.73 sqM) Est GFR (CKD-EPI)NonAf >90 (>60 ml/min/1.73 sqM) Glucose 106 H (74-99) mg/dL Calcium 9.6 (8.4-10.2) mg/dL Total Bilirubin 0.2 (0.2-1.3) mg/dL AST 22 (14-36) U/L ALT 22 (9-52) U/L Alkaline Phosphatase 57 (38-126) U/L Troponin I (0.000-0.034) ng/mL Total Protein 7.7 (6.3-8.2) g/dL Albumin 4.2 (3.5-5.0) g/dL Urine Color Urine Appearance (Clear) Urine pH (5.0-8.0) Ur Specific [place] (1.001-1.035) Urine Protein (Negative) Urine Glucose (UA) (Negative) Urine Ketones (Negative) Urine Blood (Negative) Urine Nitrite (Negative) Urine Bilirubin (Negative) Urine Urobilinogen (<2.0) mg/dL Ur Leukocyte Esterase (Negative) Urine RBC (0-5) /hpf Urine WBC (0-5) /hpf Ur Squamous Epith Cells (0-4) /hpf Urine Bacteria (None) /hpf Urine Mucus (None) /hpf Urine HCG, Qual (Not Detectd) 05/29/19 05/29/19 05/29/19 Range/Units 17:23 17:41 17:43 WBC (3.8-10.6) k/uL RBC (3.80-5.40) m/uL Hgb (11.4-16.0) gm/dL Hct (34.0-46.0) % MCV (80.0-100.0) fL MCH (25.0-35.0) pg MCHC (31.0-37.0) g/dL RDW (11.5-15.5) % Plt Count (150-450) k/uL Neutrophils % % Lymphocytes % % Monocytes % % Eosinophils % % Basophils % % Neutrophils # (1.3-7.7) k/uL Lymphocytes # (1.0-4.8) k/uL Monocytes # (0-1.0) k/uL Eosinophils # (0-0.7) k/uL Basophils # (0-0.2) k/uL PT (9.0-12.0) sec INR (<1.2) APTT (22.0-30.0) sec Sodium (137-145) mmol/L Potassium (3.5-5.1) mmol/L Chloride (98-107) mmol/L Carbon Dioxide (22-30) mmol/L Anion Gap mmol/L BUN (7-17) mg/dL Creatinine (0.52-1.04) mg/dL Est GFR (CKD-EPI)AfAm (>60 ml/min/1.73 sqM) Est GFR (CKD-EPI)NonAf (>60 ml/min/1.73 sqM) Glucose (74-99) mg/dL Calcium (8.4-10.2) mg/dL Total Bilirubin (0.2-1.3) mg/dL AST (14-36) U/L ALT (9-52) U/L Alkaline Phosphatase (38-126) U/L Troponin I <0.012 (0.000-0.034) ng/mL Total Protein (6.3-8.2) g/dL Albumin (3.5-5.0) g/dL Urine Color Yellow Urine Appearance Cloudy H (Clear) Urine pH 5.5 (5.0-8.0) Ur Specific [place] 1.014 (1.001-1.035) Urine Protein Negative (Negative) Urine Glucose (UA) Negative (Negative) Urine Ketones Negative (Negative) Urine Blood Negative (Negative) Urine Nitrite Positive H (Negative) Urine Bilirubin Negative (Negative) Urine Urobilinogen <2.0 (<2.0) mg/dL Ur Leukocyte Esterase Small H (Negative) Urine RBC 2 (0-5) /hpf Urine WBC 5 (0-5) /hpf Ur Squamous Epith Cells 10 H (0-4) /hpf Urine Bacteria Many H (None) /hpf Urine Mucus Rare H (None) /hpf Urine HCG, Qual Not Detected (Not Detectd) - EKG Data -: EKG Interpreted by Me (and Dr. Castillo) EKG Comments: Ventricular 56,. O2 14, QRS 90, QT/QTc 442/426. Sinus bradycardia with sensory arrhythmia with first-degree AV block. Nonspecific ST and T wave abnormality. Abnormal EKG. No concern for acute ischemia at this time. Disposition Clinical Impression: Atypical chest pain, UTI (urinary tract infection) Disposition: HOME SELF-CARE Condition: Stable Instructions (If sedation given, give patient instructions): Chest Pain (ED), Urinary Tract Infection in Women (ED) Additional Instructions: Take Medications as directed. Follow-up with primary care provider tomorrow. Return to ER if condition worsens in any way. Prescriptions: Cephalexin [Keflex] 500 mg PO Q12HR 7 Days #14 cap Is patient prescribed a controlled substance at d/c from ED?: No Referrals: None,Stated [Primary Care Provider] - 1-2 days [facility] [NON-STAFF] - 1-2 days
[2019-05-29 18:40] VITALS: BP 98/86; PULSE 67
== END 2019-05-29 18:41 | disposition home or self-care (01) ==
LOC: EC 16:44
DX: N39.0 Urinary tract infection, site not specified (principal); R07.89 Other chest pain; I51.7 Cardiomegaly
CPT/HCPCS: 36415; 71046; 80053; 81001; 81025; 84484; 85025; 85610; 85730; 93005; 96360; 99285

== ENCOUNTER 2019-06-29 20:59 | Emergency (ER) | payer OTHER ==
[2019-06-29 21:20] VITALS: BP 153/85; PULSE 94; RESP 20; TEMP 98.7
--- NOTE | 2019-06-29 21:45 | ED ---
URI HPI - General Chief Complaint: Upper Respiratory Infection Stated Complaint: JOSSY Time Seen by Provider: 06/29/19 21:26 Source: patient, family Mode of arrival: ambulatory Limitations: no limitations - History of Present Illness Initial Comments: Radha previously healthy 29-year-old female who presents the emergency department today for evaluation of cough. Patient reports that she recently moved into a new home that she doesn't believe is been occupied for a number of years, she states that it's very flo and she's been having a lot of runny nose and nonproductive cough. She's not taking anything for this. Patient states that this evening she had a coughing spell which prompted her to the ER for evaluation. Coughing spell resolved prior to arrival she is now asymptomatic. Patient denies any shortness of breath palpitations or chest pain. - Related Data Previous Rx's Medication Instructions Recorded Cephalexin [Keflex] 500 mg PO Q12HR 7 Days #14 cap 05/29/19 Fluticasone Nasal [place] [Flonase 1 spray EA NOSTRIL DAILY #1 bottle 06/29/19 Nasal [place]] Allergies Allergy/AdvReac Type Severity Reaction Status Date / Time No Known Allergies Allergy Verified 06/29/19 21:20 Review of Systems ROS Statement: Those systems with pertinent positive or pertinent negative responses have been documented in the HPI. ROS Other: All systems not noted in ROS Statement are negative. Past Medical History Past Medical History: No Reported History History of Any Multi-Drug Resistant Organisms: None Reported Past Surgical History: Section Additional Past Surgical History / Comment(s): IUD placement, Past Anesthesia/Blood Transfusion Reactions: No Reported Reaction Past Psychological History: Anxiety, Depression, PTSD Smoking Status: Current some day smoker Past Alcohol Use History: Occasional Past Drug Use History: Marijuana - Past Family History Mother Family Medical History: No Reported History General Exam - General Exam Comments Initial Comments: Physical Exam GENERAL: Patient is well-developed and well-nourished. Patient is nontoxic and well- hydrated and is in no distress. HENT: Normocephalic, Atraumatic. EYES: PERRL, EOMI PULMONARY: Unlabored respirations. No audible rales rhonchi or wheezing was noted. CARDIOVASCULAR: There is a regular rate and rhythm without any murmurs gallops or rubs. ABDOMEN: Soft and nontender with normal bowel sounds. SKIN: Skin is clear with no lesions or rashes and otherwise unremarkable. : Deferred NEUROLOGIC: Patient is alert and oriented x3. Moving all extremities spontaneously MUSCULOSKELETAL: Normal extremities with adequate strength and full range of motion. No lower extremity swelling or edema. No calf tenderness. PSYCHIATRIC: Normal psychiatric evaluation. Limitations: no limitations Course Vital Signs 06/29/19 21:16 Temperature 98.7 F Pulse Rate 94 Respiratory 20 Rate Blood Pressure 153/85 O2 Sat by Pulse 98 Oximetry Medical Decision Making - Medical Decision Making Patient was seen and evaluated history is obtained from the patient Patient with exposure to dust has experienced a nonproductive cough which she finds irritating prompted her to come to ER. Patient concerned that she may need antibiotics. Supportive care was discussed with the patient all questions pertaining care were answered patient was discharged home in stable condition Disposition Clinical Impression: Rhinorrhea Disposition: HOME SELF-CARE Condition: Stable Instructions (If sedation given, give patient instructions): Upper Respiratory Infection (ED) Prescriptions: Fluticasone Nasal [place] [Flonase Nasal [place]] 1 spray EA NOSTRIL DAILY #1 bottle Is patient prescribed a controlled substance at d/c from ED?: No Referrals: None,Stated [Primary Care Provider] - 1-2 days
== END 2019-06-29 22:06 | disposition home or self-care (01) ==
LOC: EC 20:59
DX: J34.89 Other specified disorders of nose and nasal sinuses (principal); F17.200 Nicotine dependence, unspecified, uncomplicated
CPT/HCPCS: 99284

== ENCOUNTER 2019-08-29 11:18 | Emergency (ER) | payer OTHER ==
[2019-08-29 11:30] VITALS: RESP 18; TEMP 98.4
[2019-08-29] MEDS ORDERED: MORPHINE SULFATE 4 MG/ML SYRINGE IM STA (11:43)
[2019-08-29 12:29] LABS: Appearance,Urine Cloudy (Clear); Bacteria,Urine Many /hpf; Bilirubin,Urine Negative (Negative); Blood,Urine Negative (Negative); Color,Urine Light Yellow; Glucose,Urine (UA) Negative (Negative); Ketones,Urine Negative (Negative); Leukocyte Esterase,Urine Negative (Negative); Mucus,Urine Rare /hpf; Nitrite,Urine Positive (Negative); Protein,Urine Negative (Negative); RBC,Urine 3 /hpf (0-5); Specific Gravity,Urine 1.014 (1.001-1.035); Squamous Epithelial Cell,Urine 4 /hpf (0-4); Urobilinogen,Urine <2.0 mg/dL (<2.0); WBC,Urine 4 /hpf (0-5)
[2019-08-29] MEDS ORDERED: ACET/COD 300 MG/30 MG STARTER PACK 6 TAB BTL PO STA (12:34)
--- NOTE | 2019-08-29 12:35 | ED ---
ENT HPI - General Chief complaint: ENT Stated complaint: poss preg, dental pain Time Seen by Provider: 08/29/19 11:32 Source: patient Mode of arrival: ambulatory Limitations: no limitations - History of Present Illness Initial comments: This is a 29-year-old female presents emergency Department chief complaint of dental pain. Patient states the pain started last few days if she has some broken teeth. Patient unable follow-up with dentist as she does not have the money for dentist she states. Patient denies fevers or chills she's had mild right-sided facial swelling no trismus. Denies any difficulty swallowing. Patient also states that she's had abdominal pain for last 5 months states that she has reflux issues but is not currently taking anything. Patient's concerned she may be though she has not IUD. Patient has some mild urinary frequency and dysuria no diarrhea no constipation. - Related Data Previous Rx's Medication Instructions Recorded Cephalexin [Keflex] 500 mg PO Q12HR 7 Days #14 cap 05/29/19 Fluticasone Nasal [place] [Flonase 1 spray EA NOSTRIL DAILY #1 bottle 06/29/19 Nasal [place]] Amoxicillin/Potassium Clav 1 tab PO Q12HR #20 tab 08/29/19 [Augmentin 875-125 Tablet] Ibuprofen [Motrin] 600 mg PO Q8HR PRN #20 tab 08/29/19 Omeprazole [PriLOSEC] 40 mg PO DAILY #14 cap 08/29/19 Allergies Allergy/AdvReac Type Severity Reaction Status Date / Time No Known Allergies Allergy Verified 08/29/19 11:26 Review of Systems ROS Statement: Those systems with pertinent positive or pertinent negative responses have been documented in the HPI. ROS Other: All systems not noted in ROS Statement are negative. Past Medical History Past Medical History: No Reported History History of Any Multi-Drug Resistant Organisms: None Reported Past Surgical History: Section Additional Past Surgical History / Comment(s): IUD placement, Past Anesthesia/Blood Transfusion Reactions: No Reported Reaction Past Psychological History: Anxiety, Depression, PTSD Smoking Status: Current some day smoker Past Alcohol Use History: None Reported, Occasional Past Drug Use History: Marijuana - Past Family History Mother Family Medical History: No Reported History General Exam Limitations: no limitations General appearance: alert, in no apparent distress Head exam: Present: atraumatic, normocephalic, normal inspection Eye exam: Present: normal appearance, PERRL, EOMI. Absent: scleral icterus, conjunctival injection, periorbital swelling ENT exam: Present: mucous membranes moist. Absent: normal exam, normal oropharynx (Edentulous, multiple dental fractures noted, no drainable abscess. Mild right-sided facial swelling) Neck exam: Present: normal inspection, full ROM. Absent: tenderness, meningismus, lymphadenopathy Respiratory exam: Present: normal lung sounds bilaterally. Absent: respiratory distress, wheezes, rales, rhonchi, stridor Cardiovascular Exam: Present: regular rate, normal rhythm, normal heart sounds. Absent: systolic murmur, diastolic murmur, rubs, gallop, clicks GI/Abdominal exam: Present: soft, tenderness (Minimal epigastric), normal bowel sounds. Absent: distended, guarding, rebound, rigid Back exam: Absent: CVA tenderness (R), CVA tenderness (L) Neurological exam: Present: alert, oriented X3 Course Vital Signs 08/29/19 11:26 Temperature 98.4 F Pulse Rate 71 Respiratory 18 Rate Blood Pressure 168/111 O2 Sat by Pulse 100 Oximetry Medical Decision Making - Medical Decision Making Patient has multiple dental fractures, missing teeth concern for dental infection. Patient is also had ongoing abdominal pain most likely related to GERD symptoms. Patient was started on omeprazole. Patient also has evidence of urinary tract infection and she is nitrite positive. Patient we discharged on Augmentin return parameters were discussed. - Lab Data Lab Results 08/29/19 08/29/19 Range/Units 11:58 11:58 Urine Color Light Yellow Urine Appearance Cloudy H (Clear) Urine pH 5.0 (5.0-8.0) Ur Specific [place] 1.014 (1.001-1.035) Urine Protein Negative (Negative) Urine Glucose (UA) Negative (Negative) Urine Ketones Negative (Negative) Urine Blood Negative (Negative) Urine Nitrite Positive H (Negative) Urine Bilirubin Negative (Negative) Urine Urobilinogen <2.0 (<2.0) mg/dL Ur Leukocyte Esterase Negative (Negative) Urine RBC 3 (0-5) /hpf Urine WBC 4 (0-5) /hpf Ur Squamous Epith Cells 4 (0-4) /hpf Urine Bacteria Many H (None) /hpf Urine Mucus Rare H (None) /hpf Urine HCG, Qual Not Detected (Not Detectd) Disposition Clinical Impression: Dental infection, UTI (urinary tract infection), GERD (gastroesophageal reflux disease) Disposition: HOME SELF-CARE Condition: Stable Instructions (If sedation given, give patient instructions): Urinary Tract Infection in Women (ED), Dental Abscess (ED) Additional Instructions: Please return to the Emergency Department if symptoms worsen or any other concerns. Prescriptions: Amoxicillin/Potassium Clav [Augmentin 875-125 Tablet] 1 tab PO Q12HR #20 tab Ibuprofen [Motrin] 600 mg PO Q8HR PRN #20 tab PRN Reason: Pain Omeprazole [PriLOSEC] 40 mg PO DAILY #14 cap Is patient prescribed a controlled substance at d/c from ED?: No Referrals: None,Stated [Primary Care Provider] - 1-2 days Time of Disposition: 12:35
[2019-08-29 13:01] VITALS: BP 143/92; PULSE 64
== END 2019-08-29 13:29 | disposition home or self-care (01) ==
LOC: EC 11:18
DX: N39.0 Urinary tract infection, site not specified (principal); K21.9 Gastro-esophageal reflux disease without esophagitis; K08.89 Other specified disorders of teeth and supporting structures; K03.81 Cracked tooth; Z97.5 Presence of (intrauterine) contraceptive device; F17.200 Nicotine dependence, unspecified, uncomplicated
CPT/HCPCS: 81001; 81025; 96372; 99283; J2270

== ENCOUNTER 2019-09-02 22:09 | Emergency (ER) | payer OTHER ==
[2019-09-02 22:15] VITALS: BP 124/77; PULSE 61; RESP 18; TEMP 98
--- NOTE | 2019-09-02 22:24 | ED ---
General Adult HPI - General Chief complaint: Dental/Oral Stated complaint: Oral Pain Time Seen by Provider: 09/02/19 22:18 Source: patient, RN notes reviewed Mode of arrival: ambulatory Limitations: no limitations - History of Present Illness Initial comments: 29-year-old female without any significant past medical history presents to the emergency department for a chief complaint of tooth pain. Stated has been ongoing for about a week. States she was seen in the emergency department a few days ago and started on Augmentin which she has been taking as directed. Patient states the pain is in her upper and lower molars on both sides. States that the cold makes this worse. 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 Patient states that she is following up with her dentist and has an appointment for extraction in 3 days. States that the swelling has improved since starting the antibiotics and the pain is improved somewhat but she is here for a note for work until she can get her teeth extracted. She has not had any fevers. She denies any edema sublingually. She denies any neck stiffness. Patient has no other complaints at this time including shortness of breath, chest pain, abdominal pain, nausea or vomiting, headache, or visual changes. - Related Data Previous Rx's Medication Instructions Recorded Cephalexin [Keflex] 500 mg PO Q12HR 7 Days #14 cap 05/29/19 Fluticasone Nasal [place] [Flonase 1 spray EA NOSTRIL DAILY #1 bottle 06/29/19 Nasal [place]] Amoxicillin/Potassium Clav 1 tab PO Q12HR #20 tab 08/29/19 [Augmentin 875-125 Tablet] Ibuprofen [Motrin] 600 mg PO Q8HR PRN #20 tab 08/29/19 Omeprazole [PriLOSEC] 40 mg PO DAILY #14 cap 08/29/19 Allergies Allergy/AdvReac Type Severity Reaction Status Date / Time No Known Allergies Allergy Verified 09/02/19 22:15 Review of Systems ROS Statement: Those systems with pertinent positive or pertinent negative responses have been documented in the HPI. ROS Other: All systems not noted in ROS Statement are negative. Past Medical History Past Medical History: No Reported History History of Any Multi-Drug Resistant Organisms: None Reported Past Surgical History: Section Additional Past Surgical History / Comment(s): IUD placement, Past Anesthesia/Blood Transfusion Reactions: No Reported Reaction Past Psychological History: Anxiety, Depression, PTSD Smoking Status: Current some day smoker Past Alcohol Use History: None Reported, Occasional Past Drug Use History: Marijuana - Past Family History Mother Family Medical History: No Reported History General Exam Limitations: no limitations General appearance: alert, in no apparent distress Head exam: Present: atraumatic, normocephalic, normal inspection Eye exam: Present: normal appearance, PERRL, EOMI. Absent: scleral icterus, conjunctival injection, periorbital swelling ENT exam: Present: normal exam, mucous membranes moist, TM's normal bilaterally, normal external ear exam. Absent: normal oropharynx (Poor dentition noted. Patient has fractures of the posterior lower molars. There is no edema noted of the face or gums. There is no evidence for abscess and palpated along the gumlines. There is no significant erythema.) Neck exam: Present: normal inspection, full ROM. Absent: tenderness, meningismus, lymphadenopathy Respiratory exam: Present: normal lung sounds bilaterally. Absent: respiratory distress, wheezes, rales, rhonchi, stridor Cardiovascular Exam: Present: regular rate, normal rhythm, normal heart sounds. Absent: systolic murmur, diastolic murmur, rubs, gallop, clicks Course Vital Signs 09/02/19 22:11 Temperature 98.0 F Pulse Rate 61 Respiratory 18 Rate Blood Pressure 124/77 O2 Sat by Pulse 100 Oximetry Medical Decision Making - Medical Decision Making Patient presents for upper and lower bilateral molar pain for several days. Has been on Augmentin. 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 Patient states she is here for work no as she is getting teeth extracted on Thursday. She denies fevers or chills sublingual edema or neck stiffness. Physical exam is generally benign although patient is noted to have fractures to the teeth. Chronic in nature. Patient will continue the Augmentin and Motrin and Tylenol for pain. She will follow-up with her dentist. She was given work note. She'll return here with any worsening symptoms including fever. Disposition Clinical Impression: Pain, dental Disposition: HOME SELF-CARE Condition: Good Instructions (If sedation given, give patient instructions): Toothache (ED) Additional Instructions: Please continue Motrin and Tylenol for pain. Continue Augmentin. Follow-up with your dentist at your scheduled appointment on Thursday. If you have any worsening symptoms or fevers return to the emergency department. Is patient prescribed a controlled substance at d/c from ED?: No Referrals: Kin Choi MD [REFERRING] - 1-2 days Time of Disposition: 22:24
== END 2019-09-02 22:38 | disposition home or self-care (01) ==
LOC: EC 22:09
DX: K08.89 Other specified disorders of teeth and supporting structures (principal); M79.89 Other specified soft tissue disorders; K03.81 Cracked tooth; F17.200 Nicotine dependence, unspecified, uncomplicated; Z97.5 Presence of (intrauterine) contraceptive device
CPT/HCPCS: 99282

== ENCOUNTER 2019-09-05 10:31 | Emergency (ER) | payer OTHER ==
[2019-09-05] MEDS ORDERED: ACETAMINOPHEN TAB 500 MG TAB PO STA (11:20)
--- NOTE | 2019-09-05 11:55 | XR ---
EXAMINATION TYPE: XR chest 2V DATE OF EXAM: 09/05/2019 COMPARISON: Cough and congestion. HISTORY: Prior chest x-ray May 29, 2019. TECHNIQUE: Frontal and lateral views of the chest are obtained. FINDINGS: Somewhat low lung volumes redemonstrated. There is no focal air space opacity, pleural effu kristopher, or pneumothorax seen. The cardiac silhouette size is upper limits of normal in current study. The osseous structures are intact. IMPRESSION: No new suspicious acute pulmonary process.
--- NOTE | 2019-09-05 11:58 | ED ---
General Adult HPI - General Chief complaint: Upper Respiratory Infection Stated complaint: fever Time Seen by Provider: 09/05/19 11:03 Source: patient, RN notes reviewed Mode of arrival: ambulatory Limitations: no limitations - History of Present Illness Initial comments: 29-year-old female presents to the emergency department for a chief complaint of fever. Patient states her and her daughter are both sick. Sates that she has had a fever for 4 days. Positive cough and congestion. Patient states her sore throat is also very bothersome. Denies any difficulty swallowing. Patient did not have Motrin or Tylenol today. Patient did not receive influenza vaccination. Patient does not have any medical complications.Patient has no other complaints at this time including shortness of breath, chest pain, abdominal pain, nausea or vomiting, headache, or visual changes. - Related Data Previous Rx's Medication Instructions Recorded Cephalexin [Keflex] 500 mg PO Q12HR 7 Days #14 cap 05/29/19 Fluticasone Nasal [place] [Flonase 1 spray EA NOSTRIL DAILY #1 bottle 06/29/19 Nasal [place]] Amoxicillin/Potassium Clav 1 tab PO Q12HR #20 tab 08/29/19 [Augmentin 875-125 Tablet] Ibuprofen [Motrin] 600 mg PO Q8HR PRN #20 tab 08/29/19 Omeprazole [PriLOSEC] 40 mg PO DAILY #14 cap 08/29/19 guaiFENesin [Mucinex] 600 mg PO Q12HR PRN #20 tablet.er 09/05/19 Allergies Allergy/AdvReac Type Severity Reaction Status Date / Time No Known Allergies Allergy Verified 09/05/19 10:46 Review of Systems ROS Statement: Those systems with pertinent positive or pertinent negative responses have been documented in the HPI. ROS Other: All systems not noted in ROS Statement are negative. Past Medical History Past Medical History: No Reported History History of Any Multi-Drug Resistant Organisms: None Reported Past Surgical History: Section Additional Past Surgical History / Comment(s): IUD placement, Past Anesthesia/Blood Transfusion Reactions: No Reported Reaction Past Psychological History: Anxiety, Depression, PTSD Smoking Status: Former smoker Past Alcohol Use History: None Reported, Occasional Past Drug Use History: Marijuana - Past Family History Mother Family Medical History: No Reported History General Exam Limitations: no limitations General appearance: alert, in no apparent distress Head exam: Present: atraumatic, normocephalic, normal inspection Eye exam: Present: normal appearance, PERRL, EOMI. Absent: scleral icterus, conjunctival injection, periorbital swelling ENT exam: Present: normal exam, normal oropharynx, mucous membranes moist, TM's normal bilaterally, normal external ear exam Neck exam: Present: normal inspection, full ROM. Absent: tenderness, meningismus, lymphadenopathy Respiratory exam: Present: normal lung sounds bilaterally. Absent: respiratory distress, wheezes, rales, rhonchi, stridor Cardiovascular Exam: Present: regular rate, normal rhythm, normal heart sounds. Absent: systolic murmur, diastolic murmur, rubs, gallop, clicks GI/Abdominal exam: Present: soft, normal bowel sounds. Absent: distended, tenderness, guarding, rebound, rigid Neurological exam: Present: alert Course Vital Signs 09/05/19 10:43 Temperature 100.0 F H Pulse Rate 93 Respiratory 18 Rate Blood Pressure 122/84 O2 Sat by Pulse 98 Oximetry Medical Decision Making - Medical Decision Making Vitals are stable. Patient has a low-grade fever of 100.0. Symptoms include cough congestion and sore throat. Physical exam is unremarkable. Lungs are clear bilaterally. Oropharynx is normal in appearance. Patient's daughter was diagnosed with influenza. Strep and influenza are negative. Chest x-ray shows no new suspicious acute pulmonary process. Given patient's daughter has influen za is possible that patient also has influenza. However she is outside of the wound of for Tamiflu treatment. She at least likely has a viral upper respiratory infection. Discussed Motrin and Tylenol for fever. As we do not see a pneumonia patient will not be treated with antibiotics. Recommend she follow up with primary care return if she has any worsening symptoms. - Lab Data Lab Results 09/05/19 09/05/19 Range/Units 10:55 11:30 Influenza Type A RNA Not Detected (Not Detectd) Influenza Type B (PCR) Not Detected (Not Detectd) Group A Strep Rapid Negative (Negative) Disposition Clinical Impression: Cough, Fever Disposition: HOME SELF-CARE Condition: Good Instructions (If sedation given, give patient instructions): Fever in Adults (ED), Acute Cough (ED) Additional Instructions: Please take Mucinex as directed. Take Motrin Tylenol for pain and fever. Drink plenty of fluids. Return to the emergency department if you have any worsening symptoms. Prescriptions: guaiFENesin [Mucinex] 600 mg PO Q12HR PRN #20 tablet.er PRN Reason: Congestion Is patient prescribed a controlled substance at d/c from ED?: No Referrals: Kin Choi MD [REFERRING] - 1-2 days Time of Disposition: 12:07
[2019-09-05 12:32] VITALS: BP 105/84; PULSE 94; RESP 16; TEMP 98.6
== END 2019-09-05 12:33 | disposition home or self-care (01) ==
LOC: EC 10:31
DX: J02.9 Acute pharyngitis, unspecified (principal); Z87.891 Personal history of nicotine dependence; Z97.5 Presence of (intrauterine) contraceptive device
CPT/HCPCS: 71046; 87081; 87430; 87502; 99284

== ENCOUNTER 2019-11-09 19:21 | Emergency (ER) | payer OTHER ==
[2019-11-09 19:27] VITALS: TEMP 97.5
[2019-11-09] MEDS ORDERED: SODIUM CHLORIDE 0.9% 1,000 ML IV STA (19:51)
[2019-11-09 20:25] LABS: Basophils % (A) 0 %; Eosinophils # (A) 0.2 k/uL (0-0.7); Eosinophils % (A) 2 %; HCT 40.5 % (34.0-46.0); Lymphocytes # (A) 2.3 k/uL (1.0-4.8); Lymphocytes % (A) 31 %; MCH 32.8 pg (25.0-35.0); MCHC 34.5 g/dL (31.0-37.0); Monocytes # (A) 0.4 k/uL (0-1.0); Monocytes % (A) 6 %; Neutrophils # (A) 4.5 k/uL (1.3-7.7); Neutrophils % (A) 59 %; Platelet Count 312 k/uL (150-450); RBC 4.27 m/uL (3.80-5.40); RDW 13.1 % (11.5-15.5); WBC 7.6 k/uL (3.8-10.6)
[2019-11-09 20:33] LABS: ALT 20 U/L (4-34); AST 27 U/L (14-36); African American GFR (CKD) >90 (>60 ml/min/1.73 sqM); Albumin 4.7 g/dL (3.5-5.0); Alkaline Phosphatase 82 U/L (38-126); Anion Gap 10 mmol/L; Blood Urea Nitrogen 13 mg/dL (7-17); Calcium 9.7 mg/dL (8.4-10.2); Carbon Dioxide 27 mmol/L (22-30); Chloride 106 mmol/L (98-107); Glucose 75 mg/dL (74-99); Magnesium 1.8 mg/dL (1.6-2.3); Non-African American GFR(CKD) >90 (>60 ml/min/1.73 sqM); Sodium 143 mmol/L (137-145); Total Bilirubin 0.2 mg/dL (0.2-1.3); Total Protein 8.5 g/dL (6.3-8.2)
[2019-11-09 20:36] LABS: INR 0.9 (<1.2); Partial Thromboplastin Time 24.3 sec (22.0-30.0); Prothrombin Time 9.7 sec (9.0-12.0)
[2019-11-09 20:43] LABS: D-Dimer 1.09 mg/L FEU (<0.60)
--- NOTE | 2019-11-09 21:06 | ED ---
Chest Pain HPI - General Chief Complaint: Chest Pain Stated Complaint: Irregular heartbeat Time Seen by Provider: 11/09/19 19:45 Source: patient Mode of arrival: wheelchair Limitations: no limitations - History of Present Illness Initial Comments: Patient is a 29-year-old female presenting to the emergency Department with complaints of palpitations and chest pain that has been intermittent for the past 3-4 weeks. She states that she felt like the pain was getting worse today so that's what made her come in today. She describes the pain as pressure on her chest, without radiation. She currently denies having pain at this time. She denies history of heart disease, blood clots. She currently does not take any medications. She denies any recent fever, chills, cough, shortness of breath, abdominal pain, nausea, vomiting. She has no other complaints at this time. Upon arrival to the ER, her vital signs are stable. - Related Data Home Medications Medication Instructions Recorded Confirmed No Known Home Medications 11/09/19 11/09/19 Allergies Allergy/AdvReac Type Severity Reaction Status Date / Time No Known Allergies Allergy Verified 11/09/19 22:36 Review of Systems ROS Statement: Those systems with pertinent positive or pertinent negative responses have been documented in the HPI. ROS Other: All systems not noted in ROS Statement are negative. EKG Findings - EKG Comments: EKG Findings:: Normal sinus rhythm with sinus arrhythmia, no signs of acute ischemia. Ventricular rate 60, HI interval 204, QTC 426. Past Medical History Past Medical History: No Reported History History of Any Multi-Drug Resistant Organisms: None Reported Past Surgical History: Section Additional Past Surgical History / Comment(s): IUD placement, Past Anesthesia/Blood Transfusion Reactions: No Reported Reaction Past Psychological History: Anxiety, Depression, PTSD Smoking Status: Former smoker Past Alcohol Use History: None Reported, Occasional Past Drug Use History: Marijuana - Past Family History Mother Family Medical History: No Reported History General Exam - General Exam Comments Initial Comments: GENERAL: Well-appearing, well-nourished and in no acute distress. HEAD: Atraumatic, normocephalic. EYES: Pupils equal round and reactive to light, extraocular movements intact, sclera anicteric, conjunctiva are normal. ENT: TMs normal, nares patent, oropharynx clear without exudates. Moist mucous membranes. NECK: Normal range of motion, supple without lymphadenopathy or JVD. LUNGS: Breath sounds clear to auscultation bilaterally and equal. No wheezes rales or rhonchi. HEART: Regular rate and rhythm without murmurs, rubs or gallops. ABDOMEN: Soft, nontender, normoactive bowel sounds. No guarding, no rebound. No masses appreciated. : Deferred EXTREMITIES: Normal range of motion, no pitting or edema. No clubbing or cyanosis. NEUROLOGICAL: Cranial nerves II through XII grossly intact. Normal speech, normal gait. PSYCH: Normal mood, normal affect. SKIN: Warm, Dry, normal turgor, no rashes or lesions noted. Limitations: no limitations Course Vital Signs 11/09/19 11/09/19 11/09/19 19:23 19:48 19:50 Temperature 97.5 F L Pulse Rate 70 69 Respiratory 20 33 H 10 L Rate Blood Pressure 141/78 143/85 O2 Sat by Pulse 99 100 Oximetry 11/09/19 11/09/19 11/09/19 20:00 20:10 20:20 Temperature Pulse Rate 64 57 L 59 L Respiratory 21 9 L 24 Rate Blood Pressure 143/85 136/80 136/80 O2 Sat by Pulse 100 100 100 Oximetry 11/09/19 11/09/19 11/09/19 20:30 20:40 20:50 Temperature Pulse Rate 60 65 65 Respiratory 17 16 24 Rate Blood Pressure 136/80 136/80 136/80 O2 Sat by Pulse 100 Oximetry 11/09/19 11/09/19 11/09/19 21:00 21:10 21:20 Temperature Pulse Rate 58 L 56 L 73 Respiratory 14 15 16 Rate Blood Pressure 136/80 121/80 121/80 O2 Sat by Pulse Oximetry 11/09/19 11/09/19 11/09/19 21:30 21:40 21:50 Temperature Pulse Rate Respiratory Rate Blood Pressure 121/80 121/80 121/80 O2 Sat by Pulse Oximetry 11/09/19 11/09/19 11/09/19 22:00 22:10 22:20 Temperature Pulse Rate 77 Respiratory 18 Rate Blood Pressure 121/80 121/80 121/80 O2 Sat by Pulse 99 Oximetry 11/09/19 11/09/19 22:30 22:40 Temperature Pulse Rate 61 Respiratory 20 Rate Blood Pressure 121/80 121/80 O2 Sat by Pulse 99 Oximetry Procedures - [facility] Protocol (Time Out) Nurse: Delma Mcqueen Chest Pain [facility] - [facility] Patient is a 29-year-old healthy female here for intermittent chest pain and palpitations 3-4 weeks. Her vitals are stable. Patient's workup is normal including EKG, troponin. Patient's d-dimer slightly elevated however computed tomography scan shows no signs of PE. Patient is stable for discharge and she is in agreement this plan of care. She will follow up with PCP. Case discussed with Dr. Lu. Disposition Clinical Impression: Atypical chest pain, Palpitations Disposition: HOME SELF-CARE Condition: Stable Instructions (If sedation given, give patient instructions): Heart Palpitations (ED) Additional Instructions: Please return to the Emergency Department if symptoms worsen or any other concerns. Follow-up with cardiology as discussed. Is patient prescribed a controlled substance at d/c from ED?: No Referrals: None,Stated [Primary Care Provider] - 1-2 days Chaz Lama MD [STAFF PHYSICIAN] - 1-2 days
--- NOTE | 2019-11-09 21:53 | CT ---
EXAMINATION TYPE: CT chest angio for PE DATE OF EXAM: 11/09/2019 COMPARISON: NONE HISTORY: Mid Chest pain for [address] DLP: 646.2 mGycm. Automated Exposure Control for Dose Reduction was Utilized. CONTRAST: CTA scan of the thorax is performed with IV Contrast, patient injected with 100 mL of Isovue 370, pul monary embolism protocol. MIP Images are created on CT scanner and reviewed. FINDINGS: LUNGS: Subpleural nodule versus atelectasis is seen in the right lower lobe on image 77 measuring 2 m m. Additional nodule versus intrafissural lymph node is seen on the left along the interlobar fissure on image 68 also measuring 2 mm. The lungs are grossly clear, there is no concerning parenchymal mas s or nodule identified. There is no pleural effusion or pneumothorax seen. The tracheobronchial tr ee is patent. MEDIASTINUM: There is satisfactory enhancement of the pulmonary artery and its branches, there is no CT evidence for pulmonary embolism. There are no greater than 1 cm hilar or mediastinal lymph nodes. No cardiomegaly or pericardial effusion is seen. OTHER: Hepatic steatosis is noted of the visualized portions of the liver.. IMPRESSION: 1. No CT evidence of pulmonary embolism. 2. Tiny pulmonary nodules versus atelectasis and interlobar fissure. Follow-up CT thorax could be per formed in 12 months for evaluation of stability. 3. Incidentally noted hepatic steatosis and the visualized portions of the liver.
[2019-11-09 22:02] VITALS: BP 121/80
[2019-11-09 22:46] VITALS: PULSE 61; RESP 20
== END 2019-11-09 22:45 | disposition home or self-care (01) ==
LOC: EC 19:21
DX: R07.89 Other chest pain (principal); R00.2 Palpitations; R79.89 Other specified abnormal findings of blood chemistry; Z87.891 Personal history of nicotine dependence
CPT/HCPCS: 36415; 93005; 85379; 80053; 83735; 84484; 85025; 85610; 85730; 71275; 99285; 96360; Q9967

== ENCOUNTER 2020-01-17 20:22 | Emergency (ER) | payer OTHER ==
[2020-01-17 20:27] VITALS: RESP 18; TEMP 98.1
[2020-01-17 20:59] LABS: Basophils % (A) 0 %; Eosinophils # (A) 0.2 k/uL (0-0.7); Eosinophils % (A) 3 %; HCT 35.2 % (34.0-46.0); HGB 12.3 gm/dL (11.4-16.0); Lymphocytes # (A) 2.6 k/uL (1.0-4.8); Lymphocytes % (A) 39 %; MCH 33.4 pg (25.0-35.0); MCV 95.7 fL (80.0-100.0); Mean Platelet Volume 7.2; Monocytes # (A) 0.4 k/uL (0-1.0); Monocytes % (A) 6 %; Neutrophils # (A) 3.4 k/uL (1.3-7.7); Neutrophils % (A) 51 %; Platelet Count 252 k/uL (150-450); RBC 3.67 m/uL (3.80-5.40); RDW 12.5 % (11.5-15.5); WBC 6.7 k/uL (3.8-10.6)
[2020-01-17 21:05] LABS: ALT 19 U/L (4-34); AST 29 U/L (14-36); African American GFR (CKD) >90 (>60 ml/min/1.73 sqM); Alkaline Phosphatase 72 U/L (38-126); Anion Gap 7 mmol/L; Blood Urea Nitrogen 10 mg/dL (7-17); Calcium 9.1 mg/dL (8.4-10.2); Carbon Dioxide 27 mmol/L (22-30); Chloride 107 mmol/L (98-107); Glucose 100 mg/dL (74-99); Magnesium 1.7 mg/dL (1.6-2.3); Non-African American GFR(CKD) >90 (>60 ml/min/1.73 sqM); Potassium 4.1 mmol/L (3.5-5.1); Sodium 141 mmol/L (137-145); Total Bilirubin 0.2 mg/dL (0.2-1.3); Total Protein 7.1 g/dL (6.3-8.2)
[2020-01-17 21:09] LABS: INR 0.9 (<1.2); Partial Thromboplastin Time 25.8 sec (22.0-30.0); Prothrombin Time 9.7 sec (9.0-12.0)
[2020-01-17 21:13] LABS: D-Dimer 1.01 mg/L FEU (<0.60)
--- NOTE | 2020-01-17 21:20 | XR ---
EXAMINATION TYPE: XR chest 2V DATE OF EXAM: 01/17/2020 COMPARISON: 09/05/2019 INDICATION: Chest pain TECHNIQUE: Frontal and lateral views of the chest are obtained. FINDINGS: The heart size is normal. The pulmonary vasculature is normal. The lungs are clear. IMPRESSION: 1. No acute pulmonary process.
--- NOTE | 2020-01-17 21:44 | ED ---
General Adult HPI - General Chief complaint: Chest Pain Stated complaint: Chest Pain Time Seen by Provider: 01/17/20 20:30 Source: patient Mode of arrival: ambulatory Limitations: no limitations - History of Present Illness Initial comments: 29-year-old female patient presents to the emergency department today for evaluation of chest pain and shortness of breath. Patient states that she has been having intermittent chest pains for quite some time now. States that she was at work today lifting boxes and doing physical activity that the pain seemed to worsen. States the pain comes on she does feel short of breath. She denies any back pain. Denies nausea or vomiting. She denies any dizziness or weakness. Denies any calf pain or swelling. Does have an IUD she is unsure which one she believes it starts with a "P", perhaps paraguard. She states that she is otherwise healthy has no chronic medical conditions. States that she does have a family history of heart disease in her father who is now . Patient denies any recent rash, fever, chills, cough, abdominal pain, diarrhea, constipation, back pain, numbness, tingling, hematuria, dysuria, urinary urgency, urinary frequency, headache, visual changes, or any other complaints. - Related Data Previous Rx's Medication Instructions Recorded Ibuprofen [Motrin] 600 mg PO Q8HR PRN #30 tab 01/17/20 Allergies Allergy/AdvReac Type Severity Reaction Status Date / Time No Known Allergies Allergy Verified 01/17/20 21:01 Review of Systems ROS Statement: Those systems with pertinent positive or pertinent negative responses have been documented in the HPI. ROS Other: All systems not noted in ROS Statement are negative. Past Medical History Past Medical History: No Reported History History of Any Multi-Drug Resistant Organisms: None Reported Past Surgical History: Section Additional Past Surgical History / Comment(s): IUD placement, Past Anesthesia/Blood Transfusion Reactions: No Reported Reaction Past Psychological History: Anxiety, Depression, PTSD Past Alcohol Use History: None Reported, Occasional Past Drug Use History: Marijuana - Past Family History Mother Family Medical History: No Reported History General Exam Limitations: no limitations General appearance: alert, in no apparent distress, other (This is a well- developed, well-nourished adult female patient in no acute distress. Vital signs upon presentation are temperature 98.1F, pulse 71, respirations 18, blood pressure 127/83, pulse ox 100% on room air.) ENT exam: Present: normal exam, normal oropharynx, mucous membranes moist Respiratory exam: Present: normal lung sounds bilaterally. Absent: respiratory distress, wheezes, rales, rhonchi, stridor Cardiovascular Exam: Present: regular rate, normal rhythm, normal heart sounds. Absent: systolic murmur, diastolic murmur, rubs, gallop, clicks GI/Abdominal exam: Present: soft, normal bowel sounds. Absent: distended, tenderness, guarding, rebound, rigid Neurological exam: Present: alert, oriented X3, CN II-XII intact Psychiatric exam: Present: normal affect, normal mood Skin exam: Present: warm, dry, intact, normal color. Absent: rash Course Vital Signs 01/17/20 01/17/20 20:23 22:30 Temperature 98.1 F Pulse Rate 71 57 L Respiratory 18 18 Rate Blood Pressure 127/83 134/86 O2 Sat by Pulse 100 98 Oximetry EKG Findings - EKG Comments: EKG Findings:: EKG obtained at 2037 shows sinus bradycardia with sinus arrhythmia. Ventricular rate is 53, NH interval 184, QRS duration 78, QT 446, QTC 418. No evidence of ST elevation or depression. Medical Decision Making - Medical Decision Making 29-year-old female patient percents to the emergency department today for evaluation of intermittent chest pain and shortness of breath. Physical examination is unremarkable. Lung sounds are clear to auscultation with good air movement. Labs reviewed and did reveal elevated d-dimer 1.01. CT angio graphy of the chest was obtained and was negative. Chest x-ray is negative. I did discuss findings and results with the patient. We did discuss costochondritis and muscle strain as cause for her symptoms that she does lift heavy boxes at work. We also discussed poor fitting or tight bras as a cause for her symptoms. She will be discharged pop with her primary care physician for recheck in 1-2 days. Return parameters were discussed in detail. She verbalizes understanding and agrees with this plan - Lab Data Result diagrams: 01/17/20 20:45 01/17/20 20:45 Lab Results 01/17/20 01/17/20 01/17/20 Range/Units 20:45 20:45 20:45 WBC 6.7 (3.8-10.6) k/uL RBC 3.67 L (3.80-5.40) m/uL Hgb 12.3 (11.4-16.0) gm/dL Hct 35.2 (34.0-46.0) % MCV 95.7 (80.0-100.0) fL MCH 33.4 (25.0-35.0) pg MCHC 35.0 (31.0-37.0) g/dL RDW 12.5 (11.5-15.5) % Plt Count 252 (150-450) k/uL Neutrophils % 51 % Lymphocytes % 39 % Monocytes % 6 % Eosinophils % 3 % Basophils % 0 % Neutrophils # 3.4 (1.3-7.7) k/uL Lymphocytes # 2.6 (1.0-4.8) k/uL Monocytes # 0.4 (0-1.0) k/uL Eosinophils # 0.2 (0-0.7) k/uL Basophils # 0.0 (0-0.2) k/uL PT 9.7 (9.0-12.0) sec INR 0.9 (<1.2) APTT 25.8 (22.0-30.0) sec D-Dimer 1.01 H (<0.60) mg/L FEU Sodium 141 (137-145) mmol/L Potassium 4.1 (3.5-5.1) mmol/L Chloride 107 (98-107) mmol/L Carbon Dioxide 27 (22-30) mmol/L Anion Gap 7 mmol/L BUN 10 (7-17) mg/dL Creatinine 0.86 (0.52-1.04) mg/dL Est GFR (CKD-EPI)AfAm >90 (>60 ml/min/1.73 sqM) Est GFR (CKD-EPI)NonAf >90 (>60 ml/min/1.73 sqM) Glucose 100 H (74-99) mg/dL Calcium 9.1 (8.4-10.2) mg/dL Magnesium 1.7 (1.6-2.3) mg/dL Total Bilirubin 0.2 (0.2-1.3) mg/dL AST 29 (14-36) U/L ALT 19 (4-34) U/L Alkaline Phosphatase 72 (38-126) U/L Troponin I (0.000-0.034) ng/mL Total Protein 7.1 (6.3-8.2) g/dL Albumin 4.0 (3.5-5.0) g/dL Urine HCG, Qual (Not Detectd) 01/17/20 01/17/20 Range/Units 20:45 21:21 WBC (3.8-10.6) k/uL RBC (3.80-5.40) m/uL Hgb (11.4-16.0) gm/dL Hct (34.0-46.0) % MCV (80.0-100.0) fL MCH (25.0-35.0) pg MCHC (31.0-37.0) g/dL RDW (11.5-15.5) % Plt Count (150-450) k/uL Neutrophils % % Lymphocytes % % Monocytes % % Eosinophils % % Basophils % % Neutrophils # (1.3-7.7) k/uL Lymphocytes # (1.0-4.8) k/uL Monocytes # (0-1.0) k/uL Eosinophils # (0-0.7) k/uL Basophils # (0-0.2) k/uL PT (9.0-12.0) sec INR (<1.2) APTT (22.0-30.0) sec D-Dimer (<0.60) mg/L FEU Sodium (137-145) mmol/L Potassium (3.5-5.1) mmol/L Chloride (98-107) mmol/L Carbon Dioxide (22-30) mmol/L Anion Gap mmol/L BUN (7-17) mg/dL Creatinine (0.52-1.04) mg/dL Est GFR (CKD-EPI)AfAm (>60 ml/min/1.73 sqM) Est GFR (CKD-EPI)NonAf (>60 ml/min/1.73 sqM) Glucose (74-99) mg/dL Calcium (8.4-10.2) mg/dL Magnesium (1.6-2.3) mg/dL Total Bilirubin (0.2-1.3) mg/dL AST (14-36) U/L ALT (4-34) U/L Alkaline Phosphatase (38-126) U/L Troponin I <0.012 (0.000-0.034) ng/mL Total Protein (6.3-8.2) g/dL Albumin (3.5-5.0) g/dL Urine HCG, Qual Not Detected (Not Detectd) - Radiology Data Radiology results: report reviewed, image reviewed Two-view x-ray is obtained of the chest. Report was reviewed in its entirety. Impression by Dr. Tapia shows no acute pulmonary process. CT chest angiography for pulmonary embolus was obtained. Report reviewed in its entirety. Impression by Dr. Key shows no acute pulmonary embolism. Disposition Clinical Impression: Chest pain Disposition: HOME SELF-CARE Condition: Good Instructions (If sedation given, give patient instructions): Chest Pain (ED), Costochondritis (ED) Additional Instructions: Try ibuprofen three times daily for pain relief. Follow up with your primary care physician for recheck in 1-2 days. Return to the emergency department for any new, worsening, or concerning symptoms. Prescriptions: Ibuprofen [Motrin] 600 mg PO Q8HR PRN #30 tab PRN Reason: Pain Is patient prescribed a controlled substance at d/c from ED?: No Referrals: Geoffrey Guzman DO [STAFF PHYSICIAN] - 1-2 days Time of Disposition: 22:18
--- NOTE | 2020-01-17 22:15 | CT ---
CT CHEST FOR PULMONARY EMBOLISM. EXAMINATION TYPE: CT chest angio for PE DATE OF EXAM: 01/17/2020 INDICATION: Chest pain, shortness of breath and elevated d-dimer. CT DLP: 623.4 mGycm, Automated exposure control for dose reduction was used. CONTRAST: Patient injected with 100ml mL of Isovue 370. COMPARISON: 11/09/2019 TECHNIQUE: CT of the chest is performed on a spiral scan at 2 mm thick sections. Study is performed with intravenous contrast timed for evaluation for pulmonary embolism. This will limit additional po rtions of the evaluation. 3-D MIP images reconstructed by the technologist are reviewed on the compu ter in the coronal and sagittal planes. FINDINGS: No persistent filling defects are evident to suggest an acute pulmonary embolism. No mediastinal or hilar adenopathy enlarged by CT criteria is evident. The ascending aorta diameter at the level of the main pulmonary artery is 2.7 cm. The main pulmonary artery diameter at the bifur cation is 2.2 cm. Lung windows are clear. Limited CT section through the upper abdomen are unremarkable. IMPRESSIONS: 1. No acute pulmonary embolism
[2020-01-17 22:32] VITALS: BP 134/86; PULSE 57
== END 2020-01-17 22:30 | disposition home or self-care (01) ==
LOC: EC 20:22
DX: R07.9 Chest pain, unspecified (principal); R06.02 Shortness of breath
CPT/HCPCS: 36415; 85379; 80053; 83735; 84484; 85025; 85610; 85730; 81025; 71046; 71275; 99285; Q9967

== ENCOUNTER 2020-09-26 13:31 | Emergency (ER) | payer OTHER ==
[2020-09-26 14:07] VITALS: BP 120/71; PULSE 69; RESP 16; TEMP 98.6
[2020-09-26] MEDS ORDERED: ACET/COD 300 MG/30 MG STARTER PACK 6 TAB BTL PO STA (14:45)
--- NOTE | 2020-09-26 14:46 | ED ---
ENT HPI - General Chief complaint: Dental/Oral Stated complaint: jaw pain Time Seen by Provider: 09/26/20 14:22 Source: patient Mode of arrival: ambulatory Limitations: no limitations - History of Present Illness Initial comments: Patient is a 30-year-old female presenting to the emergency Department with complaints of left-sided dental pain with increasing over the past week. She states she does have fractures to her teeth involving the lower left and upper side. She states she put in her own "dental cement into the fractured teeth." She states she's been trying to get into the dentist but she has been busy and the dentist office also has been dizzy. She denies any fever or chills. She denies any facial swelling. She states she is having trouble chewing on the left side. She has no further complaints. - Related Data Previous Rx's Medication Instructions Recorded Ibuprofen [Motrin] 600 mg PO Q8HR PRN #30 tab 01/17/20 Penicillin V Potassium [Pen Vee K] 500 mg PO QID 7 Days #28 tablet 09/26/20 Allergies Allergy/AdvReac Type Severity Reaction Status Date / Time No Known Allergies Allergy Verified 09/26/20 14:07 Review of Systems ROS Statement: Those systems with pertinent positive or pertinent negative responses have been documented in the HPI. ROS Other: All systems not noted in ROS Statement are negative. Past Medical History Past Medical History: No Reported History History of Any Multi-Drug Resistant Organisms: None Reported Past Surgical History: Section Additional Past Surgical History / Comment(s): IUD placement, Past Anesthesia/Blood Transfusion Reactions: No Reported Reaction Past Psychological History: Anxiety, Depression, PTSD Smoking Status: Never smoker Past Alcohol Use History: None Reported, Occasional Past Drug Use History: Marijuana - Past Family History Mother Family Medical History: No Reported History General Exam - General Exam Comments Initial Comments: GENERAL: Patient is well-developed and well-nourished. Patient is nontoxic and in no acute distress. HEAD: Atraumatic, normocephalic. EYES: Pupils equal round and reactive to light, extraocular movements intact, sclera anicteric, conjunctiva are normal. Eyelids were unremarkable. ENT: Nares patent, oropharynx clear without exudates. Moist mucous membranes. Patient does have a few fractured teeth on the left lower and upper side. There appears to be some sort of dental cement present that patient put on her own. No visible dental abscess seen. There is no facial swelling. NECK: Normal range of motion, supple without lymphadenopathy or JVD. LUNGS: Unlabored respirations. Breath sounds clear to auscultation bilaterally and equal. No wheezes rales or rhonchi. HEART: Regular rate and rhythm without murmurs, rubs or gallops. ABDOMEN: Soft, nontender, normoactive bowel sounds. No guarding, no rebound. No masses appreciated. : Deferred MUSCULOSKELETAL: Normal extremities with adequate strength and normal range of motion, no pitting or edema. No clubbing or cyanosis. NEUROLOGICAL: Patient is alert and oriented x 3. Normal speech, normal gait. PSYCH: Normal mood, normal affect. SKIN: Warm, Dry, normal turgor, no rashes or lesions noted. Limitations: no limitations Course Vital Signs 09/26/20 14:05 Temperature 98.6 F Pulse Rate 69 Respiratory 16 Rate Blood Pressure 120/71 O2 Sat by Pulse 100 Oximetry Medical Decision Making - Medical Decision Making Patient is a 30-year-old female here for left-sided dental pain has been increasing over the past week. No fevers, her vitals are stable. There is no visible dental abscess seen on exam. She did put an "dental cement into her fractured teeth." She has not seen a dentist yet. I will start her on penicillin for possible dental abscess as well as a pack of Tylenol 3 for discomfort. I also recommended continue with ibuprofen. Patient is stable for discharge. Patient is in agreement with this plan of care. Return parameters were discussed with the patient and they verbalized understanding. Case discussed with Dr. zheng. Disposition Clinical Impression: Fracture of tooth, Toothache Disposition: HOME SELF-CARE Condition: Stable Instructions (If sedation given, give patient instructions): Toothache (ED) Additional Instructions: Please return to the Emergency Department if symptoms worsen or any other concerns. Take antibiotics as prescribed, alternate Tylenol and Motrin for symptom relief. Need to follow up with dentist Prescriptions: Penicillin V Potassium [Pen Vee K] 500 mg PO QID 7 Days #28 tablet Is patient prescribed a controlled substance at d/c from ED?: No Referrals: None,Stated [Primary Care Provider] - 1-2 days Time of Disposition: 14:46
== END 2020-09-26 15:09 | disposition home or self-care (01) ==
LOC: EC 13:31
DX: S02.5XXA Fracture of tooth (traumatic), initial encounter for closed fracture (principal); F41.9 Anxiety disorder, unspecified; F32.9 Major depressive disorder, single episode, unspecified; F12.90 Cannabis use, unspecified, uncomplicated; X58.XXXA Exposure to other specified factors, initial encounter
CPT/HCPCS: 99283

== ENCOUNTER 2021-06-02 08:52 | Emergency (ER) | payer OTHER ==
[2021-06-02 08:58] VITALS: BP 118/95; RESP 18; TEMP 98.3
--- NOTE | 2021-06-02 09:43 | ED ---
General Adult HPI - General Chief complaint: ENT Stated complaint: wants covid test Time Seen by Provider: 06/02/21 08:55 Source: patient, RN notes reviewed Mode of arrival: ambulatory Limitations: no limitations - History of Present Illness Initial comments: Patient is a 31-year-old female presenting to the emergency department requesting a Covid test. Patient presented with her daughter for similar complaints. She did have a cough and congestion over the past 3 days and wanted to be tested. She's had no fevers or chills, she did have episode of nausea. No chest pain or shortness of breath. She's had no abdominal pain, no diarrhea. She has no further complaints. Her vital signs are stable upon arrival. - Related Data Previous Rx's Medication Instructions Recorded Ibuprofen [Motrin] 600 mg PO Q8HR PRN #30 tab 01/17/20 Penicillin V Potassium [Pen Vee K] 500 mg PO QID 7 Days #28 tablet 09/26/20 Allergies Allergy/AdvReac Type Severity Reaction Status Date / Time No Known Allergies Allergy Verified 06/02/21 08:58 Review of Systems ROS Statement: Those systems with pertinent positive or pertinent negative responses have been documented in the HPI. ROS Other: All systems not noted in ROS Statement are negative. Past Medical History Past Medical History: No Reported History History of Any Multi-Drug Resistant Organisms: None Reported Past Surgical History: Section Additional Past Surgical History / Comment(s): IUD placement, Past Anesthesia/Blood Transfusion Reactions: No Reported Reaction Past Psychological History: Anxiety, Depression, PTSD Smoking Status: Never smoker Past Alcohol Use History: None Reported, Occasional Past Drug Use History: Marijuana - Past Family History Mother Family Medical History: No Reported History General Exam - General Exam Comments Initial Comments: GENERAL: Patient is well-developed and well-nourished. Patient is nontoxic and in no acute distress. HEAD: Atraumatic, normocephalic. EYES: Pupils equal round and reactive to light, extraocular movements intact, sclera anicteric, conjunctiva are normal. Eyelids were unremarkable. ENT: Moist mucous membranes. NECK: Normal range of motion, supple without lymphadenopathy or JVD. LUNGS: Unlabored respirations. Breath sounds clear to auscultation bilaterally and equal. No wheezes rales or rhonchi. HEART: Regular rate and rhythm without murmurs, rubs or gallops. ABDOMEN: Soft, nontender, normoactive bowel sounds. No guarding, no rebound. No masses appreciated. MUSCULOSKELETAL: Normal extremities with adequate strength and normal range of motion, no pitting or edema. No clubbing or cyanosis. SKIN: Warm, Dry, normal turgor, no rashes or lesions noted. Limitations: no limitations Course Vital Signs 06/02/21 06/02/21 08:55 10:59 Temperature 98.3 F Pulse Rate 84 90 Respiratory 18 18 Rate Blood Pressure 118/95 O2 Sat by Pulse 98 98 Oximetry Medical Decision Making - Medical Decision Making Patient is a 31-year-old female here requesting a Covid test. She's had a cough and cold-like symptoms over the past 3 days. No fevers, vitals are stable. rapid Covid today is negative. I discussed with mother states most likely viral in nature. May take [id number] medicines for her cough. She'll follow up with primary care. She is agreeable to this plan of care. - Lab Data Lab Results 06/02/21 Range/Units 08:59 Coronavirus (PCR) Not Detected (Not Detectd) Disposition Clinical Impression: Lab test negative for COVID-19 virus, Viral illness Disposition: HOME SELF-CARE Condition: Stable Instructions (If sedation given, give patient instructions): Viral Syndrome (ED) Additional Instructions: Please return to the Emergency Department if symptoms worsen or any other concerns. Rapid Covid is negative. Is patient prescribed a controlled substance at d/c from ED?: No Referrals: None,Stated [Primary Care Provider] - 1-2 days Time of Disposition: 10:37
[2021-06-02 11:00] VITALS: PULSE 90
== END 2021-06-02 11:00 | disposition home or self-care (01) ==
LOC: EC 08:52
DX: Z20.822 Contact with and (suspected) exposure to COVID-19 (principal); B34.9 Viral infection, unspecified; F41.9 Anxiety disorder, unspecified; F32.A Depression, unspecified; F43.10 Post-traumatic stress disorder, unspecified; F12.90 Cannabis use, unspecified, uncomplicated
CPT/HCPCS: 87635; 99283

== ENCOUNTER 2021-09-05 12:14 | Emergency (ER) | payer OTHER ==
[2021-09-05 12:20] VITALS: BP 136/91; PULSE 78; RESP 18; TEMP 98.2
--- NOTE | 2021-09-05 12:38 | ED ---
General Adult HPI - General Chief complaint: Back Pain/Injury Stated complaint: Lower Back Pain Time Seen by Provider: 09/05/21 12:24 Source: patient, RN notes reviewed, old records reviewed Mode of arrival: ambulatory Limitations: no limitations - History of Present Illness Initial comments: 31-year-old female with left low back pain. Patient states she did slip on the ice falling onto her back about one week ago. She's had gradual onset of pain in the left flank and low back. She denies any urinary symptoms. No hematuria. No urinary retention or incontinence. No symptoms in the legs including no sensory changes and no shooting pain. She denies vomiting. Denies fever. - Related Data Home Medications Medication Instructions Recorded Confirmed No Known Home Medications 09/05/21 09/05/21 Allergies Allergy/AdvReac Type Severity Reaction Status Date / Time No Known Allergies Allergy Verified 09/05/21 13:07 Review of Systems ROS Statement: Those systems with pertinent positive or pertinent negative responses have been documented in the HPI. ROS Other: All systems not noted in ROS Statement are negative. Past Medical History Past Medical History: No Reported History History of Any Multi-Drug Resistant Organisms: None Reported Past Surgical History: Section Additional Past Surgical History / Comment(s): IUD placement, Past Anesthesia/Blood Transfusion Reactions: No Reported Reaction Past Psychological History: Anxiety, Depression, PTSD Smoking Status: Never smoker Past Alcohol Use History: None Reported, Occasional Past Drug Use History: Marijuana - Past Family History Mother Family Medical History: No Reported History General Exam Limitations: no limitations General appearance: alert, appears intoxicated Head exam: Present: atraumatic, normocephalic Eye exam: Present: normal appearance, PERRL ENT exam: Present: normal exam Neck exam: Present: normal inspection. Absent: tenderness, meningismus Respiratory exam: Present: normal lung sounds bilaterally. Absent: respiratory distress, wheezes Cardiovascular Exam: Present: regular rate. Absent: normal rhythm, bradycardia GI/Abdominal exam: Present: soft. Absent: distended, tenderness, guarding Extremities exam: Present: normal inspection, normal capillary refill. Absent: pedal edema Back exam: Absent: paraspinal tenderness, vertebral tenderness Neurological exam: Present: alert, oriented X3, CN II-XII intact, reflexes normal (Bilateral patellar reflexes normal), other (No sensory deficit in the lower extremities normal strength). Absent: motor sensory deficit Psychiatric exam: Present: normal affect, normal mood Skin exam: Present: warm, dry, intact. Absent: cyanosis, diaphoretic Course Vital Signs 09/05/21 12:18 Temperature 98.2 F Pulse Rate 78 Respiratory 18 Rate Blood Pressure 136/91 O2 Sat by Pulse 98 Oximetry Medical Decision Making - Medical Decision Making X-ray is performed, negative for acute fracture dislocation. Urinalysis is negative, urine negative. Patient's will take Tylenol and Motrin for pain at home. Symptoms likely related to mechanical low back pain without alarming features. - Lab Data Lab Results 09/05/21 09/05/21 Range/Units 14:06 14:06 Urine Color Yellow Urine Appearance Clear (Clear) Urine pH 5.5 (5.0-8.0) Ur Specific [place] 1.017 (1.001-1.035) Urine Protein Negative (Negative) Urine Glucose (UA) Negative (Negative) Urine Ketones Negative (Negative) Urine Blood Negative (Negative) Urine Nitrite Negative (Negative) Urine Bilirubin Negative (Negative) Urine Urobilinogen <2.0 (<2.0) mg/dL Ur Leukocyte Esterase Negative (Negative) Urine HCG, Qual Not Detected (Not Detectd) Disposition Clinical Impression: Mechanical back pain Disposition: HOME SELF-CARE Condition: Good Instructions (If sedation given, give patient instructions): Acute Low Back Pain (ED) Is patient prescribed a controlled substance at d/c from ED?: No Referrals: None,Stated [Primary Care Provider] - 1-2 days Mulugeta Allan [STAFF PHYSICIAN] - 1-2 days Time of Disposition: 16:07
[2021-09-05 15:22] LABS: Appearance,Urine Clear (Clear); Bilirubin,Urine Negative (Negative); Blood,Urine Negative (Negative); Color,Urine Yellow; Glucose,Urine (UA) Negative (Negative); Ketones,Urine Negative (Negative); Leukocyte Esterase,Urine Negative (Negative); Nitrite,Urine Negative (Negative); PH, Urine 5.5 (5.0-8.0); Protein,Urine Negative (Negative); Specific Gravity,Urine 1.017 (1.001-1.035); Urobilinogen,Urine <2.0 mg/dL (<2.0)
--- NOTE | 2021-09-05 15:59 | XR ---
Lumbosacral spine HISTORY: Trauma and pain 5 views of the lumbosacral spine, correlation prior exam 12/01/2017 Lumbar vertebral bodies show preserved height, alignment, and bone mineralization. 2 uterine contrace ptive device is noted over the pelvis. Surgical staple present in the right groin region. There is no evident spondylolysis or spondylolisthesis. Loss of disc height is a stable finding of the lumbosacr al junction. There is mild spondylosis. There is sacralization of L5. IMPRESSION: No acute fracture or subluxation. Follow-up as indicated.
== END 2021-09-05 16:25 | disposition home or self-care (01) ==
LOC: EC 12:14
DX: M54.59 Other low back pain (principal); F41.9 Anxiety disorder, unspecified; F32.A Depression, unspecified; F43.10 Post-traumatic stress disorder, unspecified; F12.90 Cannabis use, unspecified, uncomplicated
CPT/HCPCS: 72110; 81003; 81025; 99283

== ENCOUNTER 2022-03-03 10:51 | Emergency (ER) | payer OTHER ==
[2022-03-03 10:56] VITALS: TEMP 98
--- NOTE | 2022-03-03 11:27 | ED ---
Female Urogenital HPI - General Chief complaint: Vaginal Bleeding Stated complaint: Vaginal bleeding Time Seen by Provider: 03/03/22 11:18 Source: patient, RN notes reviewed, old records reviewed Mode of arrival: ambulatory Limitations: no limitations - History of Present Illness Initial comments: This is a well-appearing 31-year-old female that presents to the emergency room with complaints of vaginal bleeding for the past 2 weeks. Patient states that she had sexual intercourse 2 weeks ago when the vaginal bleeding first started. She states flow has decreased however she continues to have some spotting for the past 12 days. Light flow using just a panty liner throughout the day. She states that she did feel hot but no documented fevers. She does have nausea, no vomiting. She states that her abdomen feels bloated. She denies any difficulty in breathing or chest pain. MD Complaint: vaginal bleeding -: week(s) (2) Location: other (vaginal) Severity scale (1-10): 0 Associated Symptoms: nausea/vomiting (bloating, no vomiting) - Related Data Sexually active: Yes Home Medications Medication Instructions Recorded Confirmed No Known Home Medications 09/05/21 09/05/21 Allergies Allergy/AdvReac Type Severity Reaction Status Date / Time No Known Allergies Allergy Verified 03/03/22 10:56 Review of Systems ROS Statement: Those systems with pertinent positive or pertinent negative responses have been documented in the HPI. ROS Other: All systems not noted in ROS Statement are negative. Past Medical History Past Medical History: No Reported History History of Any Multi-Drug Resistant Organisms: None Reported Past Surgical History: Section Additional Past Surgical History / Comment(s): IUD placement, Past Anesthesia/Blood Transfusion Reactions: No Reported Reaction Past Psychological History: Anxiety, Depression, PTSD Smoking Status: Never smoker Past Alcohol Use History: None Reported, Occasional Past Drug Use History: Marijuana - Past Family History Mother Family Medical History: No Reported History General Exam Limitations: no limitations General appearance: alert, in no apparent distress Head exam: Present: atraumatic Eye exam: Present: normal appearance. Absent: scleral icterus, conjunctival injection Respiratory exam: Present: normal lung sounds bilaterally. Absent: respiratory distress, wheezes, rales, rhonchi, stridor, chest wall tenderness, accessory muscle use Cardiovascular Exam: Present: bradycardia GI/Abdominal exam: Present: soft. Absent: tenderness, guarding, rebound, rigid External exam: Absent: erythema, swelling, lesions, lacerations, ecchymosis Speculum exam: Present: vaginal bleeding. Absent: erythema, vaginal discharge, cervical discharge, foreign body, tissue, laceration Extremities exam: Present: normal capillary refill. Absent: pedal edema Neurological exam: Present: alert, oriented X3, normal gait Psychiatric exam: Present: normal affect, normal mood Skin exam: Present: warm, dry. Absent: cyanosis, diaphoretic, petechiae, pallor Course Vital Signs 03/03/22 03/03/22 03/03/22 10:53 11:30 12:04 Temperature 98.0 F Pulse Rate 59 L 60 68 Respiratory 16 20 16 Rate Blood Pressure 117/74 113/83 130/60 O2 Sat by Pulse 99 96 98 Oximetry 03/03/22 13:10 Temperature Pulse Rate 68 Respiratory 16 Rate Blood Pressure 122/65 O2 Sat by Pulse 98 Oximetry Medical Decision Making - Medical Decision Making Patient presents with light vaginal bleeding for the past 12 days. She does have an IUD in place. On physical exam there is minimal vaginal bleeding from the cervix. No evidence of foreign body or injury. Hemoglobin and hematocrit are stable. UA shows no evidence of urinary tract infection, negative for . Patient states that she is due to have her menses however bleeding for 2 weeks. This is consistent with dysfunctional uterine bleeding. She'll be directed to follow up with her primary care doctor or HOUSING OFFICER for continuation of care. Vital signs stable. Patient is agreeable to this plan of care. Case discussed with Dr. Castillo. - Lab Data Result diagrams: 03/03/22 11:48 03/03/22 11:48 Lab Results 03/03/22 03/03/22 03/03/22 Range/Units 11:48 11:48 11:48 WBC 8.3 (3.8-10.6) k/uL RBC 4.06 (3.80-5.40) m/uL Hgb 12.8 (11.4-16.0) gm/dL Hct 37.9 (34.0-46.0) % MCV 93.4 (80.0-100.0) fL MCH 31.5 (25.0-35.0) pg MCHC 33.8 (31.0-37.0) g/dL RDW 13.0 (11.5-15.5) % Plt Count 252 (150-450) k/uL MPV 8.0 Neutrophils % 52 % Lymphocytes % 36 % Monocytes % 8 % Eosinophils % 1 % Basophils % 1 % Neutrophils # 4.4 (1.3-7.7) k/uL Lymphocytes # 3.0 (1.0-4.8) k/uL Monocytes # 0.6 (0-1.0) k/uL Eosinophils # 0.1 (0-0.7) k/uL Basophils # 0.1 (0-0.2) k/uL Sodium (137-145) mmol/L Potassium (3.5-5.1) mmol/L Chloride (98-107) mmol/L Carbon Dioxide (22-30) mmol/L Anion Gap mmol/L BUN (7-17) mg/dL Creatinine (0.52-1.04) mg/dL Est GFR (CKD-EPI)AfAm (>60 ml/min/1.73 sqM) Est GFR (CKD-EPI)NonAf (>60 ml/min/1.73 sqM) Glucose (74-99) mg/dL Calcium (8.4-10.2) mg/dL Urine Color Yellow Urine Appearance Cloudy H (Clear) Urine pH 5.0 (5.0-8.0) Ur Specific [place] 1.014 (1.001-1.035) Urine Protein Negative (Negative) Urine Glucose (UA) Negative (Negative) Urine Ketones Negative (Negative) Urine Blood Large H (Negative) Urine Nitrite Negative (Negative) Urine Bilirubin Negative (Negative) Urine Urobilinogen <2.0 (<2.0) mg/dL Ur Leukocyte Esterase Negative (Negative) Urine RBC 1 (0-5) /hpf Urine WBC 4 (0-5) /hpf Ur Squamous Epith Cells 2 (0-4) /hpf Urine Bacteria Rare H (None) /hpf Urine HCG, Qual Not Detected (Not Detectd) 03/03/22 Range/Units 11:48 WBC (3.8-10.6) k/uL RBC (3.80-5.40) m/uL Hgb (11.4-16.0) gm/dL Hct (34.0-46.0) % MCV (80.0-100.0) fL MCH (25.0-35.0) pg MCHC (31.0-37.0) g/dL RDW (11.5-15.5) % Plt Count (150-450) k/uL MPV Neutrophils % % Lymphocytes % % Monocytes % % Eosinophils % % Basophils % % Neutrophils # (1.3-7.7) k/uL Lymphocytes # (1.0-4.8) k/uL Monocytes # (0-1.0) k/uL Eosinophils # (0-0.7) k/uL Basophils # (0-0.2) k/uL Sodium 142 (137-145) mmol/L Potassium 3.8 (3.5-5.1) mmol/L Chloride 103 (98-107) mmol/L Carbon Dioxide 29 (22-30) mmol/L Anion Gap 10 mmol/L BUN 11 (7-17) mg/dL Creatinine 0.69 (0.52-1.04) mg/dL Est GFR (CKD-EPI)AfAm >90 (>60 ml/min/1.73 sqM) Est GFR (CKD-EPI)NonAf >90 (>60 ml/min/1.73 sqM) Glucose 73 L (74-99) mg/dL Calcium 8.4 (8.4-10.2) mg/dL Urine Color Urine Appearance (Clear) Urine pH (5.0-8.0) Ur Specific [place] (1.001-1.035) Urine Protein (Negative) Urine Glucose (UA) (Negative) Urine Ketones (Negative) Urine Blood (Negative) Urine Nitrite (Negative) Urine Bilirubin (Negative) Urine Urobilinogen (<2.0) mg/dL Ur Leukocyte Esterase (Negative) Urine RBC (0-5) /hpf Urine WBC (0-5) /hpf Ur Squamous Epith Cells (0-4) /hpf Urine Bacteria (None) /hpf Urine HCG, Qual (Not Detectd) Disposition Clinical Impression: Dysfunctional uterine bleeding Disposition: HOME SELF-CARE Condition: Good Instructions (If sedation given, give patient instructions): Abnormal (Dysfunctional) Uterine Bleeding (ED) Additional Instructions: Follow-up with your primary care or contract runner for continuation of care. Return to the emergency room with any new or concerning symptoms including increased pain, fevers, dizziness or persistent heavy bleeding. Is patient prescribed a controlled substance at d/c from ED?: No Referrals: None,Stated [Primary Care Provider] - 1-2 days Time of Disposition: 12:50
[2022-03-03 12:05] VITALS: PULSE 68; RESP 16
[2022-03-03 12:05] LABS: Basophils # (A) 0.1 k/uL (0-0.2); Basophils % (A) 1 %; Eosinophils # (A) 0.1 k/uL (0-0.7); Eosinophils % (A) 1 %; HCT 37.9 % (34.0-46.0); HGB 12.8 gm/dL (11.4-16.0); Lymphocytes % (A) 36 %; MCH 31.5 pg (25.0-35.0); MCHC 33.8 g/dL (31.0-37.0); MCV 93.4 fL (80.0-100.0); Monocytes # (A) 0.6 k/uL (0-1.0); Monocytes % (A) 8 %; Neutrophils # (A) 4.4 k/uL (1.3-7.7); Neutrophils % (A) 52 %; Platelet Count 252 k/uL (150-450); RBC 4.06 m/uL (3.80-5.40); WBC 8.3 k/uL (3.8-10.6)
[2022-03-03 12:08] LABS: Appearance,Urine Cloudy (Clear); Bacteria,Urine Rare /hpf; Bilirubin,Urine Negative (Negative); Blood,Urine Large (Negative); Color,Urine Yellow; Glucose,Urine (UA) Negative (Negative); Ketones,Urine Negative (Negative); Leukocyte Esterase,Urine Negative (Negative); Nitrite,Urine Negative (Negative); Protein,Urine Negative (Negative); RBC,Urine 1 /hpf (0-5); Specific Gravity,Urine 1.014 (1.001-1.035); Squamous Epithelial Cell,Urine 2 /hpf (0-4); Urobilinogen,Urine <2.0 mg/dL (<2.0); WBC,Urine 4 /hpf (0-5)
[2022-03-03 12:14] LABS: African American GFR (CKD) >90 (>60 ml/min/1.73 sqM); Anion Gap 10 mmol/L; Blood Urea Nitrogen 11 mg/dL (7-17); Calcium 8.4 mg/dL (8.4-10.2); Carbon Dioxide 29 mmol/L (22-30); Chloride 103 mmol/L (98-107); Glucose 73 mg/dL (74-99); Non-African American GFR(CKD) >90 (>60 ml/min/1.73 sqM); Potassium 3.8 mmol/L (3.5-5.1); Sodium 142 mmol/L (137-145)
[2022-03-03 13:12] VITALS: BP 122/65
== END 2022-03-03 13:12 | disposition home or self-care (01) ==
LOC: EC 10:51
DX: N93.8 Other specified abnormal uterine and vaginal bleeding (principal); F41.9 Anxiety disorder, unspecified; F32.A Depression, unspecified; F12.90 Cannabis use, unspecified, uncomplicated
CPT/HCPCS: 36415; 80048; 81001; 81025; 85025; 99284

== ENCOUNTER 2022-03-23 18:53 | Emergency (ER) | payer OTHER ==
[2022-03-23 19:12] VITALS: BP 178/86; PULSE 104; RESP 20; TEMP 98.5
[2022-03-23] MEDS ORDERED: ACETAMINOPHEN TAB 500 MG TAB PO STA (19:59)
[2022-03-23] MEDS ORDERED: INDOMETHACIN 25 MG CAP PO STA (19:59)
--- NOTE | 2022-03-23 20:08 | ED ---
Extremity Problem HPI - General Chief complaint: Extremity Problem,Nontraumatic Stated complaint: rt foot pain Time Seen by Provider: 03/23/22 19:46 Source: patient, RN notes reviewed Mode of arrival: ambulatory Limitations: no limitations - History of Present Illness Initial comments: This is a 14-year-old male who presents emergency Department stating he is having suicidal thoughts. Patient states he was thinking about cutting his wrists. Patient has a superficial abraded area to his left wrist which he states he did with a knife. Patient was previously seen at [facility] after being transferred from here a few months ago. Patient has on antidepressant medication as well as anxiolytics to include Abilify. Patient claims to be taking all medications appropriately. Note that the patient was on a online video game with his girlfriend and apparently there was a disagreement or argument. Sounds like this may be the incident [place]. On the patient's current depressive state. No homicidal ideation. No recent illness. No headache, no fever or chills, no changes in vision or hearing, no sore throat or difficulty with speech, no neck pain, no chest pain or shortness of breath, no abdominal pain, no nausea or vomiting, no changes in urination or bowel movements, no numbness or tingling, no extremity pain, no skin rashes or lesions. Past medical, surgical, social, and family history reviewed. - Related Data Previous Rx's Medication Instructions Recorded Acetaminophen Tab [Tylenol Tab] 500 mg PO Q6H PRN #24 tablet 03/23/22 Indomethacin [Indocin] 50 mg PO TID PRN #20 capsule 03/23/22 Allergies Allergy/AdvReac Type Severity Reaction Status Date / Time No Known Allergies Allergy Verified 03/23/22 19:12 Review of Systems ROS Statement: Those systems with pertinent positive or pertinent negative responses have been documented in the HPI. ROS Other: All systems not noted in ROS Statement are negative. Past Medical History Past Medical History: No Reported History History of Any Multi-Drug Resistant Organisms: None Reported Past Surgical History: Section Additional Past Surgical History / Comment(s): IUD placement, Past Anesthesia/Blood Transfusion Reactions: No Reported Reaction Past Psychological History: Anxiety, Depression, PTSD Smoking Status: Never smoker Past Alcohol Use History: None Reported, Occasional Past Drug Use History: Marijuana - Past Family History Mother Family Medical History: No Reported History General Exam - General Exam Comments Initial Comments: Patient noticeably antalgic on the right. Does not appear to be ill or toxic otherwise. Limitations: no limitations General appearance: alert, in distress (Secondary to right foot pain), obese Head exam: Present: atraumatic, normocephalic, normal inspection Eye exam: Present: normal appearance, EOMI Neck exam: Present: normal inspection Respiratory exam: Present: normal lung sounds bilaterally. Absent: respiratory distress, wheezes, rales, rhonchi, stridor Cardiovascular Exam: Present: regular rate, normal rhythm, normal heart sounds. Absent: systolic murmur, diastolic murmur, rubs, gallop, clicks GI/Abdominal exam: Present: soft. Absent: tenderness Extremities exam: Present: full ROM, tenderness (Patient has tenderness to the dorsum of the right foot. There is no specific bony tenderness. No rash, no erythema, no break in skin integrity), normal capillary refill, pedal edema (Mild edema to the dorsum of the right foot, no proximal edema.), other (Pedal pulses are 2+ out of 4, Achilles tendon intact, sensation intact). Absent: joint swelling (No definitive joint effusion), calf tenderness (Homans sign is negative) Course Vital Signs 03/23/22 19:07 Temperature 98.5 F Pulse Rate 104 H Respiratory 20 Rate Blood Pressure 178/86 O2 Sat by Pulse 96 Oximetry Medical Decision Making - Medical Decision Making Right foot pain with no injury. Seems to be in the dorsum of the mid foot near the metatarsophalangeal joint areas. No trauma. Does not appear to be consistent with infectious process. No evidence of vascular insult. Possible that this is unknown soft tissue injury. Also possible that gout is within the differential. I'm going to order CBC, BMP, uric acid, CRP, ESR. Right foot x- ray ordered. Patient's workup shows evidence of hyperuricemia with a uric acid of 8.3. Suspect the patient's pain is from gout. We'll treat with indomethacin and acetaminophen. Patient given a physician to follow-up with. Patient was told to return to the ER for any signs or symptoms worsen. Told to return immediately if any other problems arise. All questions answered. Treatment plan discussed. Patient in agreement Every effort has been made to ensure accuracy of this dictation. However, due to the limitations of electronic medical records and dictation devices, errors in charting still occur. Operator And Truck Driver Dr. Mccann - Lab Data Result diagrams: 03/23/22 20:50 03/23/22 20:50 Lab Results 03/23/22 03/23/22 Range/Units 20:50 20:50 WBC 8.7 (3.8-10.6) k/uL RBC 3.76 L (3.80-5.40) m/uL Hgb 11.6 (11.4-16.0) gm/dL Hct 35.1 (34.0-46.0) % MCV 93.4 (80.0-100.0) fL MCH 30.9 (25.0-35.0) pg MCHC 33.1 (31.0-37.0) g/dL RDW 13.2 (11.5-15.5) % Plt Count 257 (150-450) k/uL MPV 7.4 Neutrophils % 66 % Lymphocytes % 24 % Monocytes % 7 % Eosinophils % 1 % Basophils % 1 % Neutrophils # 5.8 (1.3-7.7) k/uL Lymphocytes # 2.1 (1.0-4.8) k/uL Monocytes # 0.6 (0-1.0) k/uL Eosinophils # 0.1 (0-0.7) k/uL Basophils # 0.0 (0-0.2) k/uL ESR Cancelled Sodium 141 (137-145) mmol/L Potassium 3.7 (3.5-5.1) mmol/L Chloride 104 (98-107) mmol/L Carbon Dioxide 25 (22-30) mmol/L Anion Gap 12 mmol/L BUN 7 (7-17) mg/dL Creatinine 0.75 (0.52-1.04) mg/dL Est GFR (CKD-EPI)AfAm >90 (>60 ml/min/1.73 sqM) Est GFR (CKD-EPI)NonAf >90 (>60 ml/min/1.73 sqM) Glucose 109 H (74-99) mg/dL Uric Acid 8.9 H (3.7-7.4) mg/dL Calcium 9.2 (8.4-10.2) mg/dL C-Reactive Protein 1.0 H (<1.0) mg/dL - Radiology Data Radiology results: report reviewed, image reviewed Disposition Clinical Impression: Acute gout of right foot Disposition: HOME SELF-CARE Condition: Good Instructions (If sedation given, give patient instructions): Gout (ED), Low Purine Diet (ED) Additional Instructions: Follow-up with your regular physician as directed. Return to the ER immediately if any symptoms worsen, new symptoms arise, or any other problems develop. Elevate your foot as much as possible. Make a follow-up appointment with the provided physician. You need to have your uric acid monitored and you will possibly have to have another medication to lower it. Prescriptions: Indomethacin [Indocin] 50 mg PO TID PRN #20 capsule PRN Reason: Pain Acetaminophen Tab [Tylenol Tab] 500 mg PO Q6H PRN #24 tablet PRN Reason: Pain Is patient prescribed a controlled substance at d/c from ED?: No Referrals: Mary Jackson MD [STAFF PHYSICIAN] - 03/26/22 Time of Disposition: 21:45
--- NOTE | 2022-03-23 20:19 | XR ---
EXAMINATION TYPE: XR foot complete RT DATE OF EXAM: 03/23/2022 COMPARISON: NONE HISTORY: Pain TECHNIQUE: 3 view FINDINGS: Metatarsals are intact. There is soft tissue swelling of the forefoot. The toes are intact. No subluxation. IMPRESSION: Soft tissue swelling. No fracture.
[2022-03-23 21:25] LABS: Basophils % (A) 1 %; Eosinophils # (A) 0.1 k/uL (0-0.7); Eosinophils % (A) 1 %; HCT 35.1 % (34.0-46.0); HGB 11.6 gm/dL (11.4-16.0); Lymphocytes # (A) 2.1 k/uL (1.0-4.8); Lymphocytes % (A) 24 %; MCH 30.9 pg (25.0-35.0); MCHC 33.1 g/dL (31.0-37.0); MCV 93.4 fL (80.0-100.0); Mean Platelet Volume 7.4; Monocytes # (A) 0.6 k/uL (0-1.0); Monocytes % (A) 7 %; Neutrophils # (A) 5.8 k/uL (1.3-7.7); Neutrophils % (A) 66 %; Platelet Count 257 k/uL (150-450); RBC 3.76 m/uL (3.80-5.40); RDW 13.2 % (11.5-15.5); WBC 8.7 k/uL (3.8-10.6)
[2022-03-23 21:40] LABS: African American GFR (CKD) >90 (>60 ml/min/1.73 sqM); Anion Gap 12 mmol/L; Blood Urea Nitrogen 7 mg/dL (7-17); Calcium 9.2 mg/dL (8.4-10.2); Carbon Dioxide 25 mmol/L (22-30); Chloride 104 mmol/L (98-107); Glucose 109 mg/dL (74-99); Non-African American GFR(CKD) >90 (>60 ml/min/1.73 sqM); Potassium 3.7 mmol/L (3.5-5.1); Sodium 141 mmol/L (137-145); Uric Acid 8.9 mg/dL (3.7-7.4)
== END 2022-03-23 22:20 | disposition home or self-care (01) ==
LOC: EC 18:53
DX: M10.071 Idiopathic gout, right ankle and foot (principal)
CPT/HCPCS: 36415; 80048; 84550; 85025; 85652; 86140; 99283

== ENCOUNTER 2022-04-10 11:59 | Emergency (ER) | payer OTHER ==
[2022-04-10 12:59] VITALS: BP 141/51; PULSE 58; RESP 16; TEMP 98.6
--- NOTE | 2022-04-10 14:22 | XR ---
EXAMINATION TYPE: XR chest 2V DATE OF EXAM: 04/10/2022 COMPARISON: Chest x-ray January 17, 2020 HISTORY: Cough. TECHNIQUE: Frontal and lateral views of the chest are obtained. FINDINGS: There is no suspicious focal air space opacity, pleural effusion, or pneumothorax seen. T he cardiac silhouette size is stable and upper limits of normal in size. Overlying bra strap on curr ent study. The osseous structures are intact. IMPRESSION: No acute pulmonary process. No significant change from prior.
--- NOTE | 2022-04-10 14:32 | ED ---
URI HPI - General Chief Complaint: Upper Respiratory Infection Stated Complaint: Throat pain, cough Time Seen by Provider: 04/10/22 13:29 Source: patient, RN notes reviewed Mode of arrival: ambulatory Limitations: no limitations - History of Present Illness Initial Comments: 31-year-old female presents emergency department to complaint of cough and cold- like symptoms since 2 weeks. States his productive cough with green sputum. Patient states worse when she lays down. Patient does admit to sore throat mild nasal congestion no reported fever denies been smoker no history of asthma. - Related Data Previous Rx's Medication Instructions Recorded Acetaminophen Tab [Tylenol Tab] 500 mg PO Q6H PRN #24 tablet 03/23/22 Indomethacin [Indocin] 50 mg PO TID PRN #20 capsule 03/23/22 Azithromycin [Zithromax Z Pack] 0 tab PO DIRECTED #6 tab 04/10/22 Allergies Allergy/AdvReac Type Severity Reaction Status Date / Time No Known Allergies Allergy Verified 03/23/22 19:12 Review of Systems ROS Statement: Those systems with pertinent positive or pertinent negative responses have been documented in the HPI. ROS Other: All systems not noted in ROS Statement are negative. Past Medical History Past Medical History: No Reported History History of Any Multi-Drug Resistant Organisms: None Reported Past Surgical History: Section Additional Past Surgical History / Comment(s): IUD placement, Past Anesthesia/Blood Transfusion Reactions: No Reported Reaction Past Psychological History: Anxiety, Depression, PTSD Smoking Status: Never smoker Past Alcohol Use History: None Reported, Occasional Past Drug Use History: Marijuana - Past Family History Mother Family Medical History: No Reported History General Exam Limitations: no limitations General appearance: alert, in no apparent distress Head exam: Present: atraumatic, normocephalic, normal inspection Eye exam: Present: normal appearance, PERRL, EOMI. Absent: scleral icterus, conjunctival injection, periorbital swelling ENT exam: Present: normal exam, normal oropharynx, mucous membranes moist Neck exam: Present: normal inspection, full ROM. Absent: tenderness, meningis mus, lymphadenopathy Respiratory exam: Present: normal lung sounds bilaterally. Absent: respiratory distress, wheezes, rales, rhonchi, stridor Cardiovascular Exam: Present: regular rate, normal rhythm, normal heart sounds. Absent: systolic murmur, diastolic murmur, rubs, gallop, clicks Course Vital Signs 10/06/22 12:57 Temperature 98.6 F Pulse Rate 58 L Respiratory 16 Rate Blood Pressure 141/51 O2 Sat by Pulse 100 Oximetry Medical Decision Making - Medical Decision Making X-rays negative for acute processes. Patient patient has tracheobronchitis no evidence of pneumonia.. Patient will follow-up PCP. return parameters were discussed. Disposition Clinical Impression: Tracheobronchitis Disposition: HOME SELF-CARE Condition: Stable Instructions (If sedation given, give patient instructions): Upper Respiratory Infection (ED) Additional Instructions: Please return to the Emergency Department if symptoms worsen or any other concerns. Prescriptions: Azithromycin [Zithromax Z Pack] 0 tab PO DIRECTED #6 tab Is patient prescribed a controlled substance at d/c from ED?: No Referrals: None,Stated [Primary Care Provider] - 1-2 days Time of Disposition: 14:32
== END 2022-04-10 14:43 | disposition home or self-care (01) ==
LOC: EC 11:59
DX: J40 Bronchitis, not specified as acute or chronic (principal)
CPT/HCPCS: 71046; 99283

== ENCOUNTER 2022-10-04 22:48 | Emergency (ER) | payer OTHER ==
[2022-10-04 22:53] VITALS: BP 154/81; PULSE 89; RESP 16; TEMP 98.3
[2022-10-04] MEDS ORDERED: ACETAMINOPHEN TAB 325 MG TAB PO STA (23:22)
[2022-10-04] MEDS ORDERED: KETOROLAC 15 MG/ML 1 ML VIAL IM STA (23:22)
[2022-10-04] MEDS ORDERED: Acetaminophen-Codeine 300-30mg TAB PO STA (23:27)
--- NOTE | 2022-10-04 23:28 | ED ---
ENT HPI - General Chief complaint: Dental/Oral Stated complaint: Dental Infection Time Seen by Provider: 10/04/22 23:12 Source: patient, RN notes reviewed, old records reviewed Mode of arrival: ambulatory Limitations: no limitations - History of Present Illness Initial comments: Nontoxic-appearing 32-year-old female presents with right upper dental pain for several days. Denies any fevers. No trauma. Previous history of poor dental care. Is a smoker. MD complaint: tooth pain -: days(s) Location: tooth # (2) Severity scale (1-10): 8 Consistency: constant Improves with: none Context- Dental: history of dental caries, poor dental care Associated Symptoms: toothache - Related Data Previous Rx's Medication Instructions Recorded Acetaminophen Tab [Tylenol Tab] 500 mg PO Q6H PRN #24 tablet 03/23/22 Indomethacin [Indocin] 50 mg PO TID PRN #20 capsule 03/23/22 Azithromycin [Zithromax Z Pack] 0 tab PO DIRECTED #6 tab 04/10/22 Ibuprofen [Motrin] 600 mg PO Q8HR PRN #30 tab 10/04/22 Penicillin V Potassium [Pen Vee K] 500 mg PO QID #40 tablet 10/04/22 Allergies Allergy/AdvReac Type Severity Reaction Status Date / Time No Known Allergies Allergy Verified 03/23/22 19:12 Review of Systems ROS Statement: Those systems with pertinent positive or pertinent negative responses have been documented in the HPI. ROS Other: All systems not noted in ROS Statement are negative. Past Medical History Past Medical History: No Reported History History of Any Multi-Drug Resistant Organisms: None Reported Past Surgical History: Section Additional Past Surgical History / Comment(s): IUD placement, Past Anesthesia/Blood Transfusion Reactions: No Reported Reaction Past Psychological History: Anxiety, Depression, PTSD Smoking Status: Never smoker Past Alcohol Use History: None Reported, Occasional Past Drug Use History: Marijuana - Past Family History Mother Family Medical History: No Reported History General Exam Limitations: no limitations General appearance: alert, in no apparent distress Head exam: Present: atraumatic, normocephalic Eye exam: Present: normal appearance. Absent: scleral icterus, conjunctival injection, periorbital swelling, periorbital tenderness ENT exam: Present: normal oropharynx, mucous membranes moist Expanded Mouth exam: Present: tongue normal, tongue elevation. Absent: drooling, trismus, muffled voice Teeth exam: Present: dental caries, dental tenderness # (2), other (No gingival abscess). Absent: gingival enlargement Throat exam: negative: tonsillar erythema, tonsillomegaly, tonsillar exudate, R peritonsillar mass, L peritonsillar mass Neck exam: Present: full ROM. Absent: tenderness, meningismus, lymphadenopathy Respiratory exam: Absent: respiratory distress, accessory muscle use Cardiovascular Exam: Present: regular rate GI/Abdominal exam: Present: soft Neurological exam: Present: alert, oriented X3, normal gait Psychiatric exam: Present: normal affect, normal mood Skin exam: Present: warm, dry, intact, normal color. Absent: cyanosis, diaphoretic, petechiae, pallor, mottled Course Vital Signs 10/04/22 22:51 Temperature 98.3 F Pulse Rate 89 Respiratory 16 Rate Blood Pressure 154/81 O2 Sat by Pulse 98 Oximetry Medical Decision Making - Medical Decision Making On physical exam there is no gingival erythema, swelling or evidence of abscess. No lymphadenopathy. Afebrile. The patient was given a shot of Toradol and dose of Tylenol and penicillin. Prescription for Motrin and penicillin provided. Tylenol 3 take-home starter pack also provided for pain. Patient directed to keep her appointment with her dentist as scheduled on the . She is agreeable to this plan of care. Case discussed with Dr. Lu Was pt. sent in by a medical professional or institution (, PA, MEAT CUTTER, urgent c are, hospital, or longterm...) When possible be specific @ -No Did you speak to anyone other than the patient for history (EMS, parent, family, police, friend...)? What history was obtained from this source @ -No Did you review nursing and triage notes (agree or disagree)? Why? @ -I reviewed and agree with nursing and triage notes Were old charts reviewed (outside hosp., previous admission, EMS record, old EKG, old radiological studies, urgent care reports/EKG's, longterm records)? Report findings @ -no Differential Diagnosis (chest pain, altered mental status, abdominal pain women, abdominal pain men, vaginal bleeding, weakness, fever, dyspnea, syncope, headache, dizziness, GI bleed, back pain, seizure, CVA, palpatations, mental health, musculoskeletal)? @ -Dental abscess, dental fracture, ludwigs angina this is not an all inclusive list EKG interpreted by me (3pts min.). @ -n/a X-rays interpreted by me (1pt min.). @ -None done CT interpreted by me (1pt min.). @ -None done U/S interpreted by me (1pt. min.). @ -None done What testing was considered but not performed or refused? (CT, X-rays, U/S, labs)? Why? @ -None What meds were considered but not given or refused? Why? @ -None Did you discuss the management of the patient with other professionals (professionals i.e. DrOdette, PA, MEAT CUTTER, lab, RT, psych nurse, social worker delinquency prevention, poultry buyer, teacher, licensed loan officer assistant, correctional case manager)? Give summary @ -No Was smoking cessation discussed for >3mins.? @ -yeS Was critical care preformed (if so, how long)? @ -No Were there social determinants of health that impacted care today? How? (Homelessness, low income, unemployed, alcoholism, drug addiction, trans portation, low edu. Level, literacy, decrease access to med. care, usp, rehab)? @ -No Was there de-escalation of care discussed even if they declined (Discuss DNR or withdrawal of care, Hospice)? DNR status @ -No What co-morbidities impacted this encounter? (DM, HTN, Smoking, COPD, CAD, Cancer, CVA, ARF, Chemo, Hep., AIDS, mental health diagnosis, sleep apnea, morbid obesity)? @ -Smoking Was patient admitted / discharged? Hospital course, mention meds given and route, prescriptions, significant lab abnormalities, going to OR and other pertinent info. @ -Discharged Undiagnosed new problem with uncertain prognosis? @ -No Drug Therapy requiring intensive monitoring for toxicity (Heparin, Nitro, Insulin, Cardizem)? @ -No Were any procedures done? @ -No Diagnosis/symptom? @ -Toothache, dental abscess Acute, or Chronic, or Acute on Chronic? @ -Acute Uncomplicated (without systemic symptoms) or Complicated (systemic symptoms)? @ -Uncomplicated Side effects of treatment? @ -No Exacerbation, Progression, or Severe Exacerbation? @ -No Poses a threat to life or bodily function? How? (Chest pain, [place], [place], pneumonia, PE, COPD, DKA, ARF, appy, cholecystitis, CVA, Diverticulitis, Homicidal, Suicidal, threat to staff... and all critical care pts) @ -No Disposition Clinical Impression: Dental abscess Disposition: HOME SELF-CARE Condition: Good Instructions (If sedation given, give patient instructions): Dental Abscess (ED), Toothache (ED) Additional Instructions: Take Tylenol and Motrin for pain and discomfort. You can take these medications together with dosing of Tylenol every 4-6 hours, and Motrin every 6-8 hours. Take the penicillin as prescribed. Keep your appointment with the dentist as scheduled on October 22. Prescriptions: Ibuprofen [Motrin] 600 mg PO Q8HR PRN #30 tab PRN Reason: Pain Penicillin V Potassium [Pen Vee K] 500 mg PO QID #40 tablet Is patient prescribed a controlled substance at d/c from ED?: No Referrals: None,Stated [Primary Care Provider] - 1-2 days Time of Disposition: 23:27
[2022-10-04] MEDS ORDERED: PENICILLIN V POTASSIUM 250 MG TAB PO ONE (23:30)
== END 2022-10-04 23:43 | disposition home or self-care (01) ==
LOC: EC 22:48
DX: K04.7 Periapical abscess without sinus (principal); K02.9 Dental caries, unspecified; F12.90 Cannabis use, unspecified, uncomplicated
CPT/HCPCS: 99283; 96372; J1885

== ENCOUNTER 2023-02-16 19:31 | Emergency (ER) | payer OTHER ==
[2023-02-16] MEDS ORDERED: SODIUM CHLORIDE 0.9% 1,000 ML IV STA (19:35)
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
[2023-02-16 19:52] VITALS: RESP 18
[2023-02-16 19:55] LABS: Basophils % (A) 0 %; Eosinophils # (A) 0.2 k/uL (0-0.7); Eosinophils % (A) 3 %; HCT 37.4 % (34.0-46.0); HGB 12.6 gm/dL (11.4-16.0); Lymphocytes # (A) 2.5 k/uL (1.0-4.8); Lymphocytes % (A) 32 %; MCH 31.1 pg (25.0-35.0); MCHC 33.8 g/dL (31.0-37.0); MCV 91.7 fL (80.0-100.0); Mean Platelet Volume 7.6; Monocytes # (A) 0.5 k/uL (0-1.0); Monocytes % (A) 7 %; Neutrophils # (A) 4.5 k/uL (1.3-7.7); Neutrophils % (A) 56 %; Platelet Count 242 k/uL (150-450); RBC 4.07 m/uL (3.80-5.40); RDW 13.6 % (11.5-15.5)
[2023-02-16 20:02] LABS: INR 0.9 (<1.2); Partial Thromboplastin Time 23.3 sec (22.0-30.0); Prothrombin Time 9.9 sec (9.0-12.0)
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
[2023-02-16 20:05] LABS: ALT 28 U/L (4-34); AST 32 U/L (14-36); African American GFR (CKD) >90 (>60 ml/min/1.73 sqM); Albumin 4.4 g/dL (3.5-5.0); Alcohol <10 mg/dL; Alkaline Phosphatase 71 U/L (38-126); Anion Gap 10 mmol/L; Blood Urea Nitrogen 13 mg/dL (7-17); Calcium 9.5 mg/dL (8.4-10.2); Carbon Dioxide 26 mmol/L (22-30); Chloride 106 mmol/L (98-107); Glucose 91 mg/dL (74-99); Non-African American GFR(CKD) >90 (>60 ml/min/1.73 sqM); Potassium 3.9 mmol/L (3.5-5.1); Sodium 142 mmol/L (137-145); Total Bilirubin 0.5 mg/dL (0.2-1.3); Total Protein 8.4 g/dL (6.3-8.2)
[2023-02-16 20:38] VITALS: BP 129/83
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
[2023-02-16 21:22] VITALS: PULSE 65
== END 2023-02-16 22:15 | disposition home or self-care (01) ==
LOC: EC 19:31
DX: M54.2 Cervicalgia (principal); H05.20 Unspecified exophthalmos; F12.90 Cannabis use, unspecified, uncomplicated; Z86.59 Personal history of other mental and behavioral disorders; V69.9XXA Occupant (driver) (passenger) of heavy transport vehicle injured in unspecified traffic accident, initial encounter; Y92.411 Interstate highway as the place of occurrence of the external cause
CPT/HCPCS: 36415; 93005; 86900; 86901; 80053; 84443; 84484; 85025; 85610; 85730; 86850; 80320; 72170; 71045; 72125; 70450; 71260; 74177; 99285; 96360; Q9967

== ENCOUNTER 2023-03-12 12:56 | Emergency (ER) | payer OTHER ==
[2023-03-12 13:01] VITALS: TEMP 97.3
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
[2023-03-12 15:36] VITALS: BP 137/87; PULSE 60; RESP 18
== END 2023-03-12 15:38 | disposition home or self-care (01) ==
LOC: EC 12:56
DX: M71.22 Synovial cyst of popliteal space [Baker], left knee (principal); R60.0 Localized edema; F12.90 Cannabis use, unspecified, uncomplicated; Z86.59 Personal history of other mental and behavioral disorders
CPT/HCPCS: 99284

== ENCOUNTER 2023-04-15 15:57 | Emergency (ER) | payer OTHER ==
[2023-04-15 17:34] VITALS: RESP 18
[2023-04-15 17:50] LABS: Appearance,Urine Clear (Clear); Bilirubin,Urine Negative (Negative); Blood,Urine Negative (Negative); Color,Urine Colorless; Glucose,Urine (UA) Negative (Negative); Ketones,Urine Negative (Negative); Leukocyte Esterase,Urine Moderate (Negative); Nitrite,Urine Negative (Negative); Protein,Urine Negative (Negative); RBC,Urine 1 /hpf (0-5); Specific Gravity,Urine 1.013 (1.001-1.035); Squamous Epithelial Cell,Urine 2 /hpf (0-4); Urobilinogen,Urine <2.0 mg/dL (<2.0); WBC,Urine 6 /hpf (0-5)
--- NOTE | 2023-04-15 18:58 | ED ---
Abdominal Pain HPI - General Chief Complaint: Abdominal Pain Stated Complaint: Abd Pain Time Seen by Provider: 04/15/23 18:29 Source: patient Mode of arrival: ambulatory - History of Present Illness Initial Comments: 33-year-old female presenting to the ED with the chief complaints of abdominal pain. Patient states today while at rest started to experience right upper abdominal pain. Pain is sharp in nature. Pain is intermittent. Reports pain typically lasts 30 minutes however sometimes last for 2 hours. Patient reports pain is often provoked by sitting still and improves with movement. Associated nausea no vomiting. Denies any urinary symptoms. Denies changes in bowel habits. No chest pain or shortness breath. No other complaints. - Related Data Home Medications Medication Instructions Recorded Confirmed No Known Home Medications 03/12/23 03/12/23 Allergies Allergy/AdvReac Type Severity Reaction Status Date / Time No Known Allergies Allergy Verified 04/15/23 17:23 Review of Systems ROS Statement: Those systems with pertinent positive or pertinent negative responses have been documented in the HPI. ROS Other: All systems not noted in ROS Statement are negative. Past Medical History Past Medical History: No Reported History History of Any Multi-Drug Resistant Organisms: None Reported Past Surgical History: Section Additional Past Surgical History / Comment(s): IUD placement, Past Anesthesia/Blood Transfusion Reactions: No Reported Reaction Past Psychological History: Anxiety, Depression, PTSD Smoking Status: Never smoker Past Alcohol Use History: None Reported, Occasional Past Drug Use History: Marijuana - Past Family History Mother Family Medical History: No Reported History General Exam Limitations: no limitations General appearance: alert, in no apparent distress Neck exam: Present: normal inspection Respiratory exam: Present: normal lung sounds bilaterally Cardiovascular Exam: Present: regular rate, normal rhythm GI/Abdominal exam: Present: soft (No tenderness to palpation. No rebound guarding or rigidity.) Neurological exam: Present: alert, oriented X3 Skin exam: Present: warm, dry Course Vital Signs 04/15/23 04/15/23 17:20 21:58 Temperature 98 F 98.0 F Pulse Rate 76 74 Respiratory 18 18 Rate Blood Pressure 134/67 125/91 O2 Sat by Pulse 99 100 Oximetry Medical Decision Making - Medical Decision Making Was pt. sent in by a medical professional or institution (, PA, INTERMEDIATE PROJECT MANAGER, urgent care, hospital, or senior living...) When possible be specific @ -No Did you speak to anyone other than the patient for history (EMS, parent, family, police, friend...)? What history was obtained from this source @ -No Did you review nursing and triage notes (agree or disagree)? Why? @ -I reviewed and agree with nursing and triage notes Were old charts reviewed (outside hosp., previous admission, EMS record, old EKG, old radiological studies, urgent care reports/EKG's, senior living records)? Report findings @ -No old charts were reviewed Differential Diagnosis (chest pain, altered mental status, abdominal pain women, abdominal pain men, vaginal bleeding, weakness, fever, dyspnea, syncope, h eadache, dizziness, GI bleed, back pain, seizure, CVA, palpatations, mental health, musculoskeletal)? @ -Differential Abdominal Pain Women: Appendicitis, Cholecystitis, diverticulosis, ischemic bowel, pancreatitis, hepatitis, UTI, gastroenteritis, AAA, incarcerated hernia, bowel obstruction, constipation, inflammatory bowel, hepatitis, peptic ulcer disease, splenic infarction, perforated viscus, vulvitis, ovarian torsion, PID, kidney stone, placenta abruption, this is not meant to be an all-inclusive list EKG interpreted by me (3pts min.). @ -None X-rays interpreted by me (1pt min.). @ -None done CT interpreted by me (1pt min.). @ -None done U/S interpreted by me (1pt. min.). @ -None done What testing was considered but not performed or refused? (CT, X-rays, U/S, labs)? Why? @ -None What meds were considered but not given or refused? Why? @ -None Did you discuss the management of the patient with other professionals (pr ofessionals i.e. , PA, INTERMEDIATE PROJECT MANAGER, lab, RT, psych nurse, social service agency director, purse seiner, teacher, chief sustainability officer, protective services case worker)? Give summary @ -No Was smoking cessation discussed for >3mins.? @ -No Was critical care preformed (if so, how long)? @ -No Were there social determinants of health that impacted care today? How? (Homelessness, low income, unemployed, alcoholism, drug addiction, transport ation, low edu. Level, literacy, decrease access to med. care, custodial, rehab)? @ -No Was there de-escalation of care discussed even if they declined (Discuss DNR or withdrawal of care, Hospice)? DNR status @ -No What co-morbidities impacted this encounter? (DM, HTN, Smoking, COPD, CAD, Cancer, CVA, ARF, Chemo, Hep., AIDS, mental health diagnosis, sleep apnea, morbid obesity)? @ -None Was patient admitted / discharged? Hospital course, mention meds given and route, prescriptions, significant lab abnormalities, going to OR and other pertinent info. @ -Discharge A 33-year-old female presented to the ED with 1 day of left upper quadrant pain with associated nausea. Laboratory studies including CBC, chemistry panel, UA, lipase, amylase unremarkable. CT abdomen and pelvis obtained which showed no acute process. Patient discharged home in stable condition. Discussed return precautions patient verbalized. Undiagnosed new problem with uncertain prognosis? @ -No Drug Therapy requiring intensive monitoring for toxicity (Heparin, Nitro, Insulin, Cardizem)? @ -No Were any procedures done? @ -No Diagnosis/symptom? @ -Abdominal pain Acute, or Chronic, or Acute on Chronic? @ -Acute Uncomplicated (without systemic symptoms) or Complicated (systemic symptoms)? @ -Uncomplicated Side effects of treatment? @ -No Exacerbation, Progression, or Severe Exacerbation? @ -No Poses a threat to life or bodily function? How? (Chest pain, [place], [place], pneumonia, PE, COPD, DKA, ARF, appy, cholecystitis, CVA, Diverticulitis, Homicidal, Suicidal, threat to staff... and all critical care pts) @ -No - Lab Data Result diagrams: 04/15/23 19:09 04/15/23 19:09 Lab Results 04/15/23 04/15/23 04/15/23 Range/Units 17:25 18:55 19:09 WBC 7.5 (3.8-10.6) k/uL RBC 3.88 (3.80-5.40) m/uL Hgb 12.4 (11.4-16.0) gm/dL Hct 36.0 (34.0-46.0) % MCV 92.9 (80.0-100.0) fL MCH 32.1 (25.0-35.0) pg MCHC 34.5 (31.0-37.0) g/dL RDW 13.4 (11.5-15.5) % Plt Count 253 (150-450) k/uL MPV 7.2 Neutrophils % 59 % Lymphocytes % 30 % Monocytes % 6 % Eosinophils % 3 % Basophils % 0 % Neutrophils # 4.4 (1.3-7.7) k/uL Lymphocytes # 2.2 (1.0-4.8) k/uL Monocytes # 0.5 (0-1.0) k/uL Eosinophils # 0.2 (0-0.7) k/uL Basophils # 0.0 (0-0.2) k/uL Sodium (137-145) mmol/L Potassium (3.5-5.1) mmol/L Chloride (98-107) mmol/L Carbon Dioxide (22-30) mmol/L Anion Gap mmol/L BUN (7-17) mg/dL Creatinine (0.52-1.04) mg/dL Est GFR (CKD-EPI)AfAm (>60 ml/min/1.73 sqM) Est GFR (CKD-EPI)NonAf (>60 ml/min/1.73 sqM) Glucose (74-99) mg/dL Calcium (8.4-10.2) mg/dL Total Bilirubin (0.2-1.3) mg/dL AST (14-36) U/L ALT (4-34) U/L Alkaline Phosphatase (38-126) U/L Total Protein (6.3-8.2) g/dL Albumin (3.5-5.0) g/dL Urine Color Colorless Urine Appearance Clear (Clear) Urine pH 6.0 (5.0-8.0) Ur Specific [place] 1.013 (1.001-1.035) Urine Protein Negative (Negative) Urine Glucose (UA) Negative (Negative) Urine Ketones Negative (Negative) Urine Blood Negative (Negative) Urine Nitrite Negative (Negative) Urine Bilirubin Negative (Negative) Urine Urobilinogen <2.0 (<2.0) mg/dL Ur Leukocyte Esterase Moderate H (Negative) Urine RBC 1 (0-5) /hpf Urine WBC 6 H (0-5) /hpf Ur Squamous Epith Cells 2 (0-4) /hpf Urine HCG, Qual Not Detected (Not Detectd) 04/15/23 Range/Units 19:09 WBC (3.8-10.6) k/uL RBC (3.80-5.40) m/uL Hgb (11.4-16.0) gm/dL Hct (34.0-46.0) % MCV (80.0-100.0) fL MCH (25.0-35.0) pg MCHC (31.0-37.0) g/dL RDW (11.5-15.5) % Plt Count (150-450) k/uL MPV Neutrophils % % Lymphocytes % % Monocytes % % Eosinophils % % Basophils % % Neutrophils # (1.3-7.7) k/uL Lymphocytes # (1.0-4.8) k/uL Monocytes # (0-1.0) k/uL Eosinophils # (0-0.7) k/uL Basophils # (0-0.2) k/uL Sodium 141 (137-145) mmol/L Potassium 4.0 (3.5-5.1) mmol/L Chloride 106 (98-107) mmol/L Carbon Dioxide 25 (22-30) mmol/L Anion Gap 10 mmol/L BUN 16 (7-17) mg/dL Creatinine 0.65 (0.52-1.04) mg/dL Est GFR (CKD-EPI)AfAm >90 (>60 ml/min/1.73 sqM) Est GFR (CKD-EPI)NonAf >90 (>60 ml/min/1.73 sqM) Glucose 99 (74-99) mg/dL Calcium 9.3 (8.4-10.2) mg/dL Total Bilirubin 0.4 (0.2-1.3) mg/dL AST 28 (14-36) U/L ALT 24 (4-34) U/L Alkaline Phosphatase 67 (38-126) U/L Total Protein 7.9 (6.3-8.2) g/dL Albumin 4.1 (3.5-5.0) g/dL Urine Color Urine Appearance (Clear) Urine pH (5.0-8.0) Ur Specific [place] (1.001-1.035) Urine Protein (Negative) Urine Glucose (UA) (Negative) Urine Ketones (Negative) Urine Blood (Negative) Urine Nitrite (Negative) Urine Bilirubin (Negative) Urine Urobilinogen (<2.0) mg/dL Ur Leukocyte Esterase (Negative) Urine RBC (0-5) /hpf Urine WBC (0-5) /hpf Ur Squamous Epith Cells (0-4) /hpf Urine HCG, Qual (Not Detectd) Disposition Clinical Impression: Abdominal pain Disposition: HOME SELF-CARE Condition: Good Instructions (If sedation given, give patient instructions): Abdominal Pain (ED) Additional Instructions: Please return to the Emergency Department if symptoms worsen or any other co ncerns. Is patient prescribed a controlled substance at d/c from ED?: No Referrals: None,Stated [Primary Care Provider] - 1-2 days Time of Disposition: 22:04
[2023-04-15 19:21] LABS: Basophils % (A) 0 %; Eosinophils # (A) 0.2 k/uL (0-0.7); Eosinophils % (A) 3 %; HGB 12.4 gm/dL (11.4-16.0); Lymphocytes # (A) 2.2 k/uL (1.0-4.8); Lymphocytes % (A) 30 %; MCH 32.1 pg (25.0-35.0); MCHC 34.5 g/dL (31.0-37.0); MCV 92.9 fL (80.0-100.0); Mean Platelet Volume 7.2; Monocytes # (A) 0.5 k/uL (0-1.0); Monocytes % (A) 6 %; Neutrophils # (A) 4.4 k/uL (1.3-7.7); Neutrophils % (A) 59 %; Platelet Count 253 k/uL (150-450); RBC 3.88 m/uL (3.80-5.40); RDW 13.4 % (11.5-15.5); WBC 7.5 k/uL (3.8-10.6)
[2023-04-15 19:36] LABS: ALT 24 U/L (4-34); AST 28 U/L (14-36); African American GFR (CKD) >90 (>60 ml/min/1.73 sqM); Albumin 4.1 g/dL (3.5-5.0); Alkaline Phosphatase 67 U/L (38-126); Anion Gap 10 mmol/L; Blood Urea Nitrogen 16 mg/dL (7-17); Calcium 9.3 mg/dL (8.4-10.2); Carbon Dioxide 25 mmol/L (22-30); Chloride 106 mmol/L (98-107); Glucose 99 mg/dL (74-99); Non-African American GFR(CKD) >90 (>60 ml/min/1.73 sqM); Sodium 141 mmol/L (137-145); Total Bilirubin 0.4 mg/dL (0.2-1.3); Total Protein 7.9 g/dL (6.3-8.2)
--- NOTE | 2023-04-15 20:39 | CT ---
EXAMINATION TYPE: CT abdomen pelvis w con CT DLP: 2385.7 mGycm, Automated exposure control for dose reduction was used. DATE OF EXAM: 04/15/2023 8:12 PM COMPARISON: CT abdomen pelvis most recent from CLINICAL INDICATION:Female, 33 years old with history of RUQ pain; abdominal pain, nausea, diarrhea TECHNIQUE: Axial CT of the abdomen and pelvis. Sagittal and coronal reformats were created on a [employer] workstation. Contrast used:100 mL of Isovue 300 with IV Contrast, (none if empty) Oral contrast used: without Oral Contrast (none if empty) FINDINGS: LOWER CHEST: Unremarkable ABDOMEN LIVER: Diffusely hypoattenuating parenchyma. GALLBLADDER AND BILE DUCTS: Unremarkable. PANCREAS: Unremarkable. SPLEEN: Unremarkable. ADRENAL GLANDS: Unremarkable. KIDNEYS AND URETERS: No evidence of hydronephrosis or renal calculus. The ureters are unremarkable. PELVIS BLADDER: Unremarkable REPRODUCTIVE: Intrauterine device seen within the endometrium. ABDOMEN & PELVIS STOMACH AND BOWEL: No evidence of bowel obstruction. Few scattered colonic diverticula. The appendix is normal. PERITONEUM/RETROPERITONEUM: No evidence of pneumoperitoneum or free fluid. VASCULATURE: No evidence of aortic aneurysm. MUSCULOSKELETAL: No acute osseous abnormalities LYMPH NODES: No gross evidence for lymphadenopathy. SOFT TISSUE/ABDOMINAL WALL: Fat-containing buccal hernia. IMPRESSION: 1. No evidence for acute abdominal process. 2. Fat-containing umbilical hernia. 3. IUD in appropriate position. 4. Hepatic steatosis.
[2023-04-15 22:14] VITALS: BP 125/91; PULSE 74; TEMP 98
== END 2023-04-15 22:13 | disposition home or self-care (01) ==
LOC: EC 15:57
DX: K42.9 Umbilical hernia without obstruction or gangrene (principal); K76.0 Fatty (change of) liver, not elsewhere classified; F12.90 Cannabis use, unspecified, uncomplicated; Z86.59 Personal history of other mental and behavioral disorders
CPT/HCPCS: 36415; 80053; 85025; 81001; 81025; 74177; 99284; Q9967

== ENCOUNTER 2024-02-10 11:18 | Emergency (ER) | payer OTHER ==
--- NOTE | 2024-03-21 12:17 | XR ---
Site ID synapse default Patient Radha Quintero ID [id number] Age/Gender: 33Y, F Order # N/A Procedure XR lumbar spine complete Date 02/10/2024 1:02:35 PM EXAMINATION TYPE: XR lumbosacral spine min 4V DATE OF EXAM: 02/27/2024 5:25 PM INDICATION: Patient age: Female; 33 year old; Reason for study: Low back pain COMPARISON: CT abdomen pelvis 04/15/2023, lumbosacral spine radiographs 09/05/2021 TECHNIQUE: Frontal, lateral , bilateral oblique and coned in L5-S1 lateral views of the spine. FINDINGS: There are 5 lumbar type vertebral bodies identified. Sacralization of L5 with both transver se processes causing pseudoarticulation with the sacrum. No evidence of any acute osseous pathology. No evidence of loss of vertebral body height is seen. There is normal alignment of the lumbar verteb ral bodies. IUD is present within the pelvis. IMPRESSION: 1. No acute process. 2. 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
== END 2024-02-10 16:20 | disposition left against medical advice (07) ==
LOC: EC 11:18
DX: M54.50 Low back pain, unspecified (principal); Z53.29 Procedure and treatment not carried out because of patient's decision for other reasons
CPT/HCPCS: 72110; 81003; 81025; 99283

== ENCOUNTER 2024-03-19 22:54 | Emergency (ER) | payer OTHER ==
[2024-03-19 23:02] VITALS: TEMP 97.4
[2024-03-20 01:13] LABS: Appearance,Urine Clear (Clear); Bacteria,Urine Rare /hpf; Bilirubin,Urine Negative (Negative); Blood,Urine Small (Negative); Color,Urine Colorless; Glucose,Urine (UA) Negative (Negative); Ketones,Urine Negative (Negative); Leukocyte Esterase,Urine Trace (Negative); Nitrite,Urine Negative (Negative); Protein,Urine Negative (Negative); RBC,Urine <1 /hpf (0-5); Specific Gravity,Urine 1.012 (1.001-1.035); Squamous Epithelial Cell,Urine 2 /hpf (0-4); Urobilinogen,Urine <2.0 mg/dL (<2.0); WBC,Urine 1 /hpf (0-5)
--- NOTE | 2024-03-20 01:46 | ED ---
Female Urogenital HPI - General Chief complaint: Urogenital Stated complaint: UTI Time Seen by Provider: 03/19/24 23:06 Source: patient Mode of arrival: ambulatory Limitations: no limitations - History of Present Illness Initial comments: 33-year-old female presents emergency department reporting pressure with urination. States that she has had the symptoms for some time but has been ignoring them. Tonight she brought her daughter in for evaluation and figured that she get checked out as well. She denies concern for . No vaginal bleeding or discharge. No concern for sexually transmitted infections. She denies hematuria. No flank pain. No changes in her bowel or bladder habits include diarrhea, constipation, black or bloody stools. No other alleviating, precipitating or modifying factors Last Menstrual Period: 03/13/24 - Related Data Previous Rx's Medication Instructions Recorded Cephalexin [Keflex] 500 mg PO BID #14 cap 03/20/24 Allergies Allergy/AdvReac Type Severity Reaction Status Date / Time No Known Allergies Allergy Verified 03/19/24 22:59 Review of Systems ROS Statement: Those systems with pertinent positive or pertinent negative responses have been documented in the HPI. ROS Other: All systems not noted in ROS Statement are negative. Past Medical History Past Medical History: No Reported History History of Any Multi-Drug Resistant Organisms: None Reported Past Surgical History: Section Additional Past Surgical History / Comment(s): IUD placement, Past Anesthesia/Blood Transfusion Reactions: No Reported Reaction Past Psychological History: Anxiety, Depression, PTSD Smoking Status: Never smoker Past Alcohol Use History: None Reported Past Drug Use History: Marijuana - Past Family History Mother Family Medical History: No Reported History General Exam Limitations: no limitations General appearance: alert, in no apparent distress Head exam: Present: atraumatic, normocephalic, normal inspection Eye exam: Present: normal appearance, PERRL, EOMI. Absent: scleral icterus, conjunctival injection, periorbital swelling ENT exam: Present: normal exam, mucous membranes moist Neck exam: Present: normal inspection. Absent: tenderness, meningismus, lymphadenopathy Respiratory exam: Present: normal lung sounds bilaterally. Absent: respiratory distress, wheezes, rales, rhonchi, stridor Cardiovascular Exam: Present: regular rate, normal rhythm, normal heart sounds. Absent: systolic murmur, diastolic murmur, rubs, gallop, clicks GI/Abdominal exam: Present: soft, normal bowel sounds. Absent: distended, tenderness, guarding, rebound, rigid Extremities exam: Present: normal inspection, full ROM, normal capillary refill. Absent: tenderness, pedal edema, joint swelling, calf tenderness Back exam: Present: normal inspection Neurological exam: Present: alert, oriented X3, CN II-XII intact Psychiatric exam: Present: normal affect, normal mood Skin exam: Present: warm, dry, intact, normal color. Absent: rash Course Vital Signs 03/19/24 03/20/24 23:00 02:18 Temperature 97.4 F L Pulse Rate 77 72 Respiratory 17 16 Rate Blood Pressure 150/103 146/94 O2 Sat by Pulse 99 97 Oximetry Medical Decision Making - Medical Decision Making Was pt. sent in by a medical professional or institution (, PA, CHIEF AIRLINE RADIO OPERATOR, urgent care, hospital, or custodial...) When possible be specific @ -No Did you speak to anyone other than the patient for history (EMS, parent, family, police, friend...)? What history was obtained from this source @ -No Did you review nursing and triage notes (agree or disagree)? Why? @ -I reviewed and agree with nursing and triage notes Were old charts reviewed (outside hosp., previous admission, EMS record, old EKG, old radiological studies, urgent care reports/EKG's, custodial records)? Report findings @ -No old charts were reviewed Differential Diagnosis (chest pain, altered mental status, abdominal pain women, abdominal pain men, vaginal bleeding, weakness, fever, dyspnea, syncope, hea dache, dizziness, GI bleed, back pain, seizure, CVA, palpatations, mental health, musculoskeletal)? @ -Differential Abdominal Pain Women: Appendicitis, Cholecystitis, diverticulosis, ischemic bowel, pancreatitis, hepatitis, UTI, gastroenteritis, AAA, incarcerated hernia, bowel obstruction, constipation, inflammatory bowel, hepatitis, peptic ulcer disease, splenic infarction, perforated viscus, vulvitis, ovarian torsion, PID, kidney stone, placenta abruption, this is not meant to be an all-inclusive list EKG interpreted by me (3pts min.). @ -Not done X-rays interpreted by me (1pt min.). @ -None done CT interpreted by me (1pt min.). @ -None done U/S interpreted by me (1pt. min.). @ -None done What testing was considered but not performed or refused? (CT, X-rays, U/S, labs)? Why? @ -None What meds were considered but not given or refused? Why? @ -None Did you discuss the management of the patient with other professionals (professionals i.e. , PA, CHIEF AIRLINE RADIO OPERATOR, lab, RT, psych nurse, social sciences instructor, motorcycle subassembly repairer, teacher, commissary officer, showcase maker)? Give summary @ -No Was smoking cessation discussed for >3mins.? @ -No Was critical care preformed (if so, how long)? @ -No Were there social determinants of health that impacted care today? How? (Homelessness, low income, unemployed, alcoholism, drug addiction, transportation, low edu. Level, literacy, decrease access to med. care, correction, rehab)? @ -No Was there de-escalation of care discussed even if they declined (Discuss DNR or withdrawal of care, Hospice)? DNR status @ -No What co-morbidities impacted this encounter? (DM, HTN, Smoking, COPD, CAD, Cancer, CVA, ARF, Chemo, Hep., AIDS, mental health diagnosis, sleep apnea, morbid obesity)? @ -None Was patient admitted / discharged? Hospital course, mention meds given and rout e, prescriptions, significant lab abnormalities, going to OR and other pertinent info. @ -Upon arrival patient seen and evaluated in room 22. Thorough history and physical exam was performed. Urine does demonstrate rare bacteria. As patient is symptomatic I will attempt to treat the patient and see if she has improvement in her symptoms. She is given a dose of Keflex in the emergency department. Stressed to her that if she does not have any improvement in her symptoms that she needs to follow-up with her primary care doctor for further evaluation. Patient understood this. She was discharged home in stable condition Undiagnosed new problem with uncertain prognosis? @ -No Drug Therapy requiring intensive monitoring for toxicity (Heparin, Nitro, Insulin, Cardizem)? @ -No Were any procedures done? @ -No Diagnosis/symptom? @ -Acute dysuria, abnormal UA Acute, or Chronic, or Acute on Chronic? @ -W acute Uncomplicated (without systemic symptoms) or Complicated (systemic symptoms)? @ -Complicated Side effects of treatment? @ -No Exacerbation, Progression, or Severe Exacerbation? @ -No Poses a threat to life or bodily function? How? (Chest pain, [place], [place], pneumonia, PE, COPD, DKA, ARF, appy, cholecystitis, CVA, Diverticulitis, Homicidal, Suicidal, threat to staff... and all critical care pts) @ -No - Lab Data Lab Results 03/20/24 03/20/24 Range/Units 00:48 00:48 Urine Color Colorless Urine Appearance Clear (Clear) Urine pH 6.0 (5.0-8.0) Ur Specific [place] 1.012 (1.001-1.035) Urine Protein Negative (Negative) Urine Glucose (UA) Negative (Negative) Urine Ketones Negative (Negative) Urine Blood Small H (Negative) Urine Nitrite Negative (Negative) Urine Bilirubin Negative (Negative) Urine Urobilinogen <2.0 (<2.0) mg/dL Ur Leukocyte Esterase Trace H (Negative) Urine RBC <1 (0-5) /hpf Urine WBC 1 (0-5) /hpf Ur Squamous Epith Cells 2 (0-4) /hpf Urine Bacteria Rare H (None) /hpf Urine HCG, Qual Not Detected (Not Detectd) Disposition Clinical Impression: Dysuria Disposition: HOME SELF-CARE Condition: Stable Instructions (If sedation given, give patient instructions): Dysuria (ED) Additional Instructions: Please try to see if the medication helps your symptoms. Follow-up with your doctor and return for any new or worsening symptoms Prescriptions: Cephalexin [Keflex] 500 mg PO BID #14 cap Is patient prescribed a controlled substance at d/c from ED?: No Referrals: None,Stated [Primary Care Provider] - 1-2 days Time of Disposition: 01:41
[2024-03-20] MEDS: CEPHALEXIN 500 MG CAP PO STA (01:47)
[2024-03-20 02:19] VITALS: BP 146/94; PULSE 72; RESP 16
== END 2024-03-20 02:18 | disposition home or self-care (01) ==
LOC: EC 22:54
DX: R30.0 Dysuria (principal)
CPT/HCPCS: 81001; 81025; 99283